=== PATIENT | male | born 1970 | race Hispanic/Latino ===

== ENCOUNTER 2024-05-18 22:46 | Inpatient (IN) | payer OTHER, SELFPAY ==
[2024-05-18] VITALS (7 sets, daily range): BP systolic 110–155; BP diastolic 58–107; BMI 31.6
[2024-05-18 18:22] LABS: % Basophils 0.5 % (0-2); % Eosinophils 0.1 % (0-6); % Immature Granulocytes 4.9 % (0-0.5); % Lymphocytes 12.1 % (20.5-51.1); % Monocytes 13.4 % (1.7-9.3); Absolute Basophils 0.1 10^3/uL (0-0.2); Absolute Immature Granulocytes 0.5 10^3/uL (0-0.05); Absolute Lymphocytes 1.3 10^3/uL (1.2-3.4); Absolute Monocytes 1.5 10^3/uL (0.1-0.6); Absolute Neutrophils 7.6 10^3/uL (1.4-6.5); Hematocrit 37.3 % (39.0-52.0); Hemoglobin 13.7 g/dL (13.0-18.0); Mean Corp Hgb Conc. 36.7 g/dL (33.0-37.0); Mean Corpuscular Hgb 30.9 pg (27.0-31.0); Nucleated Red Blood Cells % 0 % (-); Platelet Count 184 10^3/uL (130-400); Red Blood Cell Count 4.44 10^6/uL (4.70-6.10); Red Cell Dist. Width 12.1 % (11.5-14.5)
[2024-05-18 18:37] LABS: ALT (SGPT) 11 U/L (0-50); AST (SGOT) 23 U/L (17-59); Alkaline Phosphatase 141 U/L (38-126); Blood Urea Nitrogen 10 mg/dl (9-20); Calcium 9.2 mg/dl (8.4-10.2); Carbon Dioxide 18 mmol/L (22-30); Chloride 94 mmol/L (98-107); Glucose 417 mg/dl (70-99); Potassium 4.1 mmol/L (3.5-5.1); Sodium 128 mmol/L (135-145); Total Protein 6.8 g/dl (6.3-8.2); eGFR > 60.00
[2024-05-18] MEDS: TYLENOL 1000 MG PO (20:12)
--- NOTE | 2024-05-18 20:30 | ED.GENMED ---
History of Present Illness
<Bon Love PA-C - Last Filed: 05/18/24 22:32>
General
Chief Complaint: Male Genito-Urinary Symptoms
Source: patient
Time Seen by Provider: 05/18/24 20:04
History of Present Illness
History of Present Illness:
Lao Language Line [id number], griffin, used for interpretation
54-year-old male with past medical history of diabetes (has not been on medication for many years) presenting to the emergency department for evaluation of pain and swelling to his scrotum noting that he had a pimple on this on Saturday and he did to
pop the pimple and drained the area but states it did not drain anything and he has been having worsening pain and swelling since. Patient felt febrile but did not take his temperature, found to be febrile in triage. Did not take any medications
prior to arrival. Notes that he had 1 previous similar instance where he did drain a pustule but states this has gotten significantly worse than what he had previously. Patient notes that he used to take metformin but due to a job change was
unable to afford the medication and has not been on this. Patient denies any dysuria, urinary frequency/urgency, hematuria or any other concerns presently.
Past History
<Bon Love PA-C - Last Filed: 05/18/24 22:32>
Past History
ED Past Medical History: NIDDM
ED Past Surgical History: None
Social History
Tobacco: Non-smoker
Alcohol: None
Drug: None
Personal:
Living: with family
Employment: Other
Family History
Family History: Other
Review of Systems
<Bon Love PA-C - Last Filed: 05/18/24 22:32>
Review of Systems
All Other Systems: ROS reviewed and negative except as documented in HPI and ROS
Phy Exam
<Bon Love PA-C - Last Filed: 05/18/24 22:32>
Physical Exam
Physical Exam:
GENERAL: Alert , appears very uncomfortable
HEAD: NCAT
EYE: clear conjunctiva
NECK: Supple
ENT: o/p clr, mmm.
CARDIAC: Tachycardic rate and rhythm
LUNGS: Clear breath sounds bilaterally, no acute respiratory distress, no wheezes/rales/rhonchi
ABDOMEN: Soft, without focal tenderness, no r/g, no cvat
GENITOURINARY: Patient with significant bilateral scrotal edema but tenderness more so on the right. Edema and tenderness extends down into the perineum but without crepitus. There is some mild erythema overlying the scrotum and perineum. There
is a small area where pustule was which is hypopigmented. Due to the amount of edema to the scrotum difficult to assess testicular edema/focal areas of pain
NEUROLOGICAL: Alert and oriented
SKIN: Warm and dry, skin intact.
MUSCULOSKELETAL: well perfused.
PSYCH: Normal and appropriate interaction.
Scores
<Bon Love PA-C - Last Filed: 05/18/24 22:32>
Heart Failure Risk
Heart Failure Risk Score: Not Applicable
Heart Score for Chest Pain Patients
STEMI patient?: Not applicable
Withdrawal Assessment of Alcohol
Withdrawal Assessment Completed?: Not applicable
Course
<Bon Love PA-C - Last Filed: 05/18/24 22:32>
Orders/Labs/Results
Orders:
Orders
05/18/24 18:01
Scrotum US [US Scrotum] Urgent
Comment:
Reason For Exam: pain, swelling
05/18/24 18:04
Complete Blood Count/With Diff Urgent
Comprehensive Metabolic Panel Urgent
05/18/24 20:05
Acetaminophen [Tylenol] 1,000 mg PO NOW STA
05/18/24 20:13
Lactic Acid Q4H
Comment: CANCEL 2nd LACTIC ACID IF 1st LACTIC ACID IS LESS THAN 2
Blood Culture Routine
ERIC Source: Blood/Venous
Specimen Description:
Blood Culture Urgent
ERIC Source: Blood/Venous
Specimen Description:
05/18/24 20:30
CT Abd/pelvis W Iv Cont Urgent
Comment:
Reason For Exam: significant scrotal/perineal edema/pain, fever
05/18/24 20:31
HYDROmorphone [Dilaudid] 1 mg IV NOW STA
Piperacillin/Tazo 3.375 Gram [Zosyn] 3.375 gram in 50 ml IV NOW
05/18/24 20:38
Vancomycin [Vancocin] 2,000 mg 0.9% Sodium Chloride 500 ml [Nss] 500 ml IV NOW
05/18/24 21:46
0.9% Sodium Chloride 1000 ml [Nss] 2,300 ml IV NOW STA
05/18/24 22:21
Insulin Aspart [NOVOLOG vial] 4 units SC NOW STA
05/18/24 22:23
Lidocaine 2% [Lidocaine Uro-Jet 2%] 1 syringe .ROUTE .STK-MED ONE
05/18/24 22:27
Admit/Transfer Patient As Directed
Co-Sign Provider:
Level of Care: Inpatient admission
Assign to:: ICU
Physician / Group: Chance
Diagnosis: NSTI, Sepsis
Reason for Hospitalization: NSTI, Sepsis
Expected length of stay greater than two midnights?: Yes
ELOS- Estimated Length of Stay in days: 5
I certify the patient meets the requirements for IP care: Yes
Code Status As Directed
Resuscitation Status: Full Code
PRN Pain Medication Management As Directed
May give lesser potent ordered pain med per pt: Yes
preference::
Protocol:: Medication orders for pain may be administered in a
manner that supports deferring to patient preference
when the pt is:
- Requesting an ordered lesser potent pain medication.
Least to most potent pain medications are defined
as: acetaminophen < NSAID < tramadol < opioids
(morphine, oxycodone, hydromorphone).
- Requesting a lesser dose of the same medication IF
ORDERED.
- Requesting a less intrusive route of administration
if both routes are prescribed by the provider (PO <
IV).
05/18/24 22:56
Urinalysis Reflex To Culture Urgent
Date Specimen was Collected: 05/18/24
Time Specimen was Collected: 22:47
Chlamydia/GC by PCR Urgent
ERIC Source: Urine
Specimen Description:
Source:: URINE
Date Specimen was Collected: 05/18/24
Time Specimen was Collected: 22:47
05/19/24 00:15
Lactic Acid Q4H
Comment: CANCEL 2nd LACTIC ACID IF 1st LACTIC ACID IS LESS THAN 2
Abnormal Lab Results
05/18/24 05/18/24
18:04 22:25
WBC 11.0 H 10^3/uL
(4.8-10.8)
RBC 4.44 L 10^6/uL
(4.70-6.10)
Hct 37.3 L %
(39.0-52.0)
Abs Immat Gran (auto) 0.5 H 10^3/uL
(0-0.05)
Absolute Neuts (auto) 7.6 H 10^3/uL
(1.4-6.5)
Absolute Monos (auto) 1.5 H 10^3/uL
(0.1-0.6)
Immature Gran % 4.9 H %
(0-0.5)
Lymphocytes % 12.1 L %
(20.5-51.1)
Monocytes % 13.4 H %
(1.7-9.3)
Sodium 128 L mmol/L
(135-145)
Chloride 94 L mmol/L
(98-107)
Carbon Dioxide 18 L mmol/L
(22-30)
Creatinine 0.4 L mg/dL
(0.7-1.3)
Glucose 417 H mg/dl
(70-99)
Alkaline Phosphatase 141 H U/L
(38-126)
POC Glucose 268 H mg/dl
(70-99)
05/18/24 18:04
05/18/24 18:04
Vital Signs
Initial and Last Documented VS:
Initial Vital Signs
Temp Pulse Resp BP Pulse Ox
101.5 F H 119 20 155/107 98
05/18/24 17:54 05/18/24 17:54 05/18/24 17:54 05/18/24 17:54 05/18/24 17:54
Last Documented Vital Signs
Temp Pulse Resp BP Pulse Ox
100.6 F H 113 16 134/93 95
05/18/24 21:35 05/18/24 20:18 05/18/24 20:18 05/18/24 22:00 05/18/24 22:45
<Jake Jimenez MD - Last Filed: 05/18/24 23:26>
Orders/Labs/Results
Orders:
Orders
05/18/24 18:01
Scrotum US [US Scrotum] Urgent
Comment:
Reason For Exam: pain, swelling
05/18/24 18:04
Complete Blood Count/With Diff Urgent
Comprehensive Metabolic Panel Urgent
05/18/24 20:05
Acetaminophen [Tylenol] 1,000 mg PO NOW STA
05/18/24 20:13
Lactic Acid Q4H
Comment: CANCEL 2nd LACTIC ACID IF 1st LACTIC ACID IS LESS THAN 2
Blood Culture Routine
ERIC Source: Blood/Venous
Specimen Description:
Blood Culture Urgent
ERIC Source: Blood/Venous
Specimen Description:
05/18/24 20:30
CT Abd/pelvis W Iv Cont Urgent
Comment:
Reason For Exam: significant scrotal/perineal edema/pain, fever
05/18/24 20:31
HYDROmorphone [Dilaudid] 1 mg IV NOW STA
Piperacillin/Tazo 3.375 Gram [Zosyn] 3.375 gram in 50 ml IV NOW
05/18/24 20:38
Vancomycin [Vancocin] 2,000 mg 0.9% Sodium Chloride 500 ml [Nss] 500 ml IV NOW
05/18/24 21:46
0.9% Sodium Chloride 1000 ml [Nss] 2,300 ml IV NOW STA
05/18/24 22:21
Insulin Aspart [NOVOLOG vial] 4 units SC NOW STA
05/18/24 22:23
Lidocaine 2% [Lidocaine Uro-Jet 2%] 1 syringe .ROUTE .STK-MED ONE
05/18/24 22:27
Admit/Transfer Patient As Directed
Co-Sign Provider:
Level of Care: Inpatient admission
Assign to:: ICU
Physician / Group: Chance
Diagnosis: NSTI, Sepsis
Reason for Hospitalization: NSTI, Sepsis
Expected length of stay greater than two midnights?: Yes
ELOS- Estimated Length of Stay in days: 5
I certify the patient meets the requirements for IP care: Yes
Code Status As Directed
Resuscitation Status: Full Code
PRN Pain Medication Management As Directed
May give lesser potent ordered pain med per pt: Yes
preference::
Protocol:: Medication orders for pain may be administered in a
manner that supports deferring to patient preference
when the pt is:
- Requesting an ordered lesser potent pain medication.
Least to most potent pain medications are defined
as: acetaminophen < NSAID < tramadol < opioids
(morphine, oxycodone, hydromorphone).
- Requesting a lesser dose of the same medication IF
ORDERED.
- Requesting a less intrusive route of administration
if both routes are prescribed by the provider (PO <
IV).
05/18/24 22:56
Urinalysis Reflex To Culture Urgent
Date Specimen was Collected: 05/18/24
Time Specimen was Collected: 22:47
Chlamydia/GC by PCR Urgent
ERIC Source: Urine
Specimen Description:
Source:: URINE
Date Specimen was Collected: 05/18/24
Time Specimen was Collected: 22:47
05/19/24 00:15
Lactic Acid Q4H
Comment: CANCEL 2nd LACTIC ACID IF 1st LACTIC ACID IS LESS THAN 2
Abnormal Lab Results
05/18/24 05/18/24
18:04 22:25
WBC 11.0 H 10^3/uL
(4.8-10.8)
RBC 4.44 L 10^6/uL
(4.70-6.10)
Hct 37.3 L %
(39.0-52.0)
Abs Immat Gran (auto) 0.5 H 10^3/uL
(0-0.05)
Absolute Neuts (auto) 7.6 H 10^3/uL
(1.4-6.5)
Absolute Monos (auto) 1.5 H 10^3/uL
(0.1-0.6)
Immature Gran % 4.9 H %
(0-0.5)
Lymphocytes % 12.1 L %
(20.5-51.1)
Monocytes % 13.4 H %
(1.7-9.3)
Sodium 128 L mmol/L
(135-145)
Chloride 94 L mmol/L
(98-107)
Carbon Dioxide 18 L mmol/L
(22-30)
Creatinine 0.4 L mg/dL
(0.7-1.3)
Glucose 417 H mg/dl
(70-99)
Alkaline Phosphatase 141 H U/L
(38-126)
POC Glucose 268 H mg/dl
(70-99)
05/18/24 18:04
05/18/24 18:04
Vital Signs
Initial and Last Documented VS:
Initial Vital Signs
Temp Pulse Resp BP Pulse Ox
101.5 F H 119 20 155/107 98
05/18/24 17:54 05/18/24 17:54 05/18/24 17:54 05/18/24 17:54 05/18/24 17:54
Last Documented Vital Signs
Temp Pulse Resp BP Pulse Ox
100.6 F H 113 16 134/93 95
05/18/24 21:35 05/18/24 20:18 05/18/24 20:18 05/18/24 22:00 05/18/24 22:45
<Bon Love PA-C - Last Filed: 05/18/24 22:32>
MDM/Problems Addressed
Differential Diagnosis Includes:
Orchitis, epididymitis, Salima's gangrene, STI, UTI, abscess
MDM/Problems Addressed:
54-year-old male presenting the emergency department for evaluation of significant scrotal pain and edema that started Saturday is a small pustule but is gradually worsened throughout the weekend. Today found to be significantly tachycardic, febrile
and appears quite uncomfortable. Exam was noted for significant scrotal edema with pain and tenderness extending into the perineum. Labs were initiated while in triage which revealed a leukocytosis of 11,000. Patient also has a glucose of 417 and
the bicarb of 18. 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 Vancomycin and Zosyn ordered. Stat CT and scrotal ultrasound ordered. Patient will certainly require admission and
possible consultation with urology as well as general surgery.
Chronic conditions affecting care: DM
Acute Exacerbation and/or Progression of Chronic Illness: DM
<Bon Love PA-C - Last Filed: 05/18/24 22:32>
*Radiology
Radiology exam reviewed: radiology read reviewed
*Pulse Oximetry
Patient hypoxic: no
*Critical Care Note
Total Time (30-74mins, 75-104mins- exclusive of procedures): 30
comment:
Critical care statement: A total of 30 minutes of critical care time was provided for this patient. This includes management of unstable vital signs, evaluation of the patient at bedside, reviewing the patient's pertinent medical records, discussion
with consultants, review of old EKGs and review of pertinent medical records. This time with separate from time utilized to perform the aforementioned documented procedures
<Bon Love PA-C - Last Filed: 05/18/24 22:32>
Patient Management
Discussion with other providers: Hospitalist and Manufacturing Supervisor
Escalation/DeEscalation of care consider admission/obs:
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 Due to these findings I notified urology, general surgery and hospitalist team. Urology will come to the ER to evaluate patient with plan to take to the OR. They are
requesting Matute catheter be placed. Hospitalist team accepts for continued evaluation and treatment. I initially ordered 4 units of insulin subcutaneously for patient's hyperglycemia but upon recheck following fluids patient's blood sugar down to
268. Will hold on the insulin at this time.
ED Attending Note
<Bon Love PA-C - Last Filed: 05/18/24 22:32>
-
Portions of this chart may have been created with voice recognition software.� Occasional wrong word or��sound alike� substitutions may have occurred due to the inherent limitations of voice recognition software.
<Jake Jimenez MD - Last Filed: 05/18/24 23:26>
ED Attending Note
Patient seen and examined by attending physician: Yes
ED Attending Note:
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 Discussed with on-call urology, Dr. Tovar, who will come and evaluate patient. Prostatic antibiotics ordered, along with IV fluids. Patient remains alert, awake, and
oriented, with stable blood pressure, although with mild tachycardia. Patient will be admitted to the hospitalist service.
Pt evaluated by (urology) - will proceed to OR
Discharge Plan
Departure
Patient Disposition: Admit
Date of Disposition: 05/18/24
Time of Disposition: 21:47
Presentation/result/management discussed w/ accepting MD/DO: Hospitalist
Discharge Problem:
Salima gangrene, Diabetes mellitus
Interventions
Interventions:
*Risk Screen - Suicide Last Done: 05/18/24 20:18
*General Assessment Last Done: 05/18/24 20:18
*Neglect/Abuse Screening Last Done: 05/18/24 20:18
ED- Fall Risk Assessment Last Done: 05/18/24 20:18
*ED COVID-19 Vaccine History Last Done: 05/18/24 20:18
ED-Male Genitourinary Assessment Last Done: 05/18/24 21:03
[2024-05-18] MEDS: DILAUDID 1 MG IV (20:36)
[2024-05-18] MEDS: ZOSYN 50 IV (20:36)
[2024-05-18 20:52] LABS: Lactic Acid 1.6 mmol/L (0.7-2.0)
[2024-05-18] MEDS: VANCOCIN 540 MG IV (21:10)
[2024-05-18] MEDS: NSS 2300 ML IV (21:53)
[2024-05-18 22:27] LABS: Glucose - Point of Care 268 mg/dl (70-99)
--- NOTE | 2024-05-18 23:11 | EDRN ---
Dr. Tovar at bedside working on seeing and assessing patient
[2024-05-18 23:22] LABS: Urine Albumin Trace (Neg - Trace); Urine Bilirubin Negative (Negative); Urine Character Clear (Clear); Urine Color Yellow; Urine Glucose 3+ (Negative); Urine Ketone 3+ (Negative); Urine Leukocyte Negative (Negative); Urine Nitrite Negative (Negative); Urine Occult Blood Negative (Negative); Urine Specific Gravity 1.015 (<1.030); Urine Urobilinogen Negative (Neg - 1+)
--- NOTE | 2024-05-18 23:29 | HPS.HSE ---
Family Physician
-
Family Physician: * NONE
Chief Complaint
-
Scrotal Pain and Swelling
History of Present Illness
Patient is a 54y M with PMH significant for DM-II who presents to ED complaining of scrotal pain and swelling. Patient states that he appreciated a 'pimple' on his scrotum on the R side on Saturday of last week. He attempted to express material
from this lesion without success. He then punctured the lesion with a pin in an attempt to drain it - also without success. Over the last 2 days, patient has appreciated significant increased in pain and swelling of the scrotum and penis. He
denies any difficulty with urination or hematuria. He reports fevers / shaking chills over the past 2 days.
Patient has DM-II but is not currently on any medications. He denies any prior history of surgeries.
Medical History
Past Medical History
Past Medical History: Reports Other
Additional Past Medical History:
DM-II
Past Surgical History: Reports None
Social History
Tobacco: Non-smoker
Alcohol: Occasional
Drug: None
Family History
Family History: Not pertinent
Allergies / Home Medications
Allergies reflects when Allergies were last updated in [employer].
Home Medications with original date entered in [employer]
Allergy/Medication List:
Allergies
Allergy/AdvReac Type Severity Reaction Status Date / Time
No Known Allergies Allergy Unverified 05/18/24 17:57
Home Medications
No Meds [No Current Medications] 05/18/24
Review of Systems
-
History Source: Patient
A 12 point ROS was completed and negative except as noted: Yes
Constitutional: Reports Fever and Chills
Respiratory: Denies Cough or Trouble Breathing
Cardiac: Denies Chest Pain or Palpitations
Abdomen/GI: Denies Abdominal Pain, Nausea, Vomiting or Diarrhea
: Reports Other (Scrotal pain and swelling.); Denies Dysuria, Flank Pain or Bleeding
Musculoskeletal: Denies Edema
Neurological: Denies Dizzy or Headache
Psych: Denies Depression or Anxiety
Physical Exam
Vital Signs
Vital Signs
Temp Pulse Resp BP Pulse Ox
100.6 F H 113 16 134/93 95
05/18/24 21:35 05/18/24 20:18 05/18/24 20:18 05/18/24 22:00 05/18/24 22:45
Physical Exam
General: Other (54y M in no acute distress.)
HEENT: Moist mucous membranes and PERRLA
Respiratory: Clear; No Wheezes, Rales or Rhonchi
Cardiac: S1/S2 and Tachycardia; No Murmur
GI: Soft, Non Tender, Non Distended and Normal Bowel Sounds
Genito-urinary: Other (Scrotal edema and tenderness with erythema / increased warmth. Punctate lesion R lateral aspect of the scrotum with clear drainage / discharge. )
Musculoskeletal: No Clubbing, No Cyanosis and No Edema
Neuro: AO x 3
Laboratory Results
-
05/18/24 18:04
05/18/24 18:04
Laboratory Results
Lactic Acid 1.6 mmol/L (0.7-2.0) 05/18/24 20:13
Total Bilirubin 1.0 mg/dl (0.2-1.3) 05/18/24 18:04
AST 23 U/L (17-59) 05/18/24 18:04
ALT 11 U/L (0-50) 05/18/24 18:04
Alkaline Phosphatase 141 U/L (38-126) H 05/18/24 18:04
Impression/Plan
-
A/P: Patient is a 54y M with PMH significant for DM-II who presents to ED complaining of scrotal pain and swelling.
Necrotizing Soft Tissue Infection
Sepsis secondary to the above
- Patient with fever, tachycardia, leukocytosis and evidence of soft tissue infection on exam.
- CT imaging done in the ED shows gas in the soft tissues consistent with necrotizing soft tissue infection / Salima's gangrene.
- Urology evaluated the patient in the ED and he will be taken urgently to the OR for wide debridement.
- Admit to the ICU post-operatively.
- IV abx, aggressive IVFs, supportive care, pain control, etc.
- Follow serial lactate, BP, etc.
- Follow for clinical improvement.
- Follow-up culture data and adjust abx as appropriate.
DM-II with Hyperglycemia
- Glucose initially > 400 but improved significantly with aggressive IVFs support.
- Minimal elevation in anon gap - likely related to infection / NSTI > DKA.
- Continue aggressive IVFs given sepsis, hyperglycemia, etc.
- Update A1C.
- Follow glucose and cover with SSI as needed.
Pseudohyponatremia / Mild Hyponatremia
- Secondary to glucose elevation. Corrected Na = 133.
- IVFs as noted above. Follow for changes.
DVT Prophylaxis: Lovenox
Code Status: Full
--- NOTE | 2024-05-18 23:45 | W.PN.URO.CBU ---
Today's Communication / Plan
-
to op room
Assessment / Plan
-
diabetic with hert hmi scrotl fournoe for excision and debridement
Diagnosis
-
Date of Service: May 18, 2024
-
Patient Diagnosis:diabetic with rt hemiscrotal fourniers gangrene
Post Op Day:
Subjective
-
pain fever chills rapidy developing painful rt swelling
Objective
-
Vital Signs
Temp Pulse Resp BP Pulse Ox
100.6 F H 113 16 134/93 95
05/18/24 21:35 05/18/24 20:18 05/18/24 20:18 05/18/24 22:00 05/18/24 22:45
Laboratory Results
05/18/24 18:04
05/18/24 18:04
Review of Systems
-
: Discharge and Other
Physical Exam
-
General - well developed, well nourished, no acute distress
Chest - clear bilaterally
Abdomen - soft, non-tender, positive bowel sounds, no CVAT, no incisional pain or distention
Genitalia - draining 1 cm t hemiscrotal ea=scar skin necrtic eschar crepitancel
Rectal - normal
Skin - warm & dry with no rash
Neuro - AOx3, no motor deficits
Extremities - no clubbing, no cyanosis, no edema
Incision - clean, dry
Dressing - clean, dry, intact
Care Review
Data Reviewed
Discussed with: Hospitalist and Nursing
CT Scan: Image Pers Reviewed
[2024-05-19] VITALS (24 sets, daily range): BP systolic 77–135; BP diastolic 54–94; BMI 27.8
[2024-05-19 00:07] LABS: Glucose - Point of Care 193 mg/dl (70-99)
--- NOTE | 2024-05-19 00:11 | EDRN ---
Report to the OR and patient taken upstairs.
--- NOTE | 2024-05-19 00:49 | W.SUR.POST ---
Surgical Immediate Post Op
Note
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
Post Op Diagnosis: same
Procedure Performed: wide xcision and debridement forniers
Primary Surgeon: josé manuel
Secondary Surgeons:
Anesthesia: general
Estimated Blood Loss: 5cc
5
Fluids:
Drains/Shunts: quarter inch katey and iodophor packing
Specimens/Cultures:wouns aerobiic and amaerobic
Doppler/Duplex/Angio (Y/N):
Complications:0
Operative Findings: widely necrotib=c feculent smelling abces s and ncrotic skin an sq tissue widely debrided packed derssed
ti do 1 srt yordan bean in op room once stabilzes and blood sugar under control
[2024-05-19 01:16] LABS: Glucose - Point of Care 193 mg/dl (70-99)
[2024-05-19] MEDS: LR 1000 IV ×2 (01:19→06:22)
--- NOTE | 2024-05-19 01:30 | PTCARENOTE ---
Patient received from PAC, AAOX3, offers no complaints. NSR on monitor, afebrile, blood pressure as documented. Palpabble pulses throughout, no edema noted. Lungs with scattered crackles on left, pulse ox 94% on room air. Abdomen round,
hypoctive bowel sounds. puri catheter draining pink tinged urine. Penis with +[address] edema[address] in place on right side of scrotum, gauze, with serosanguineous fluid. #20 g in ARC, #20 g in right forearm with IVF infusing as ordered. Call vargas
within reach
[2024-05-19] MEDS: ZOSYN 50 IV ×4 (02:00→20:49)
[2024-05-19] MEDS: DILAUDID 0.25 MG IV (04:39)
--- NOTE | 2024-05-19 04:52 | PTCARENOTE ---
Patient reassessed, medicated for pain. Dressing changed. Labs drawn.
[2024-05-19 05:09] LABS: Hematocrit 33.7 % (39.0-52.0); Hemoglobin 12.3 g/dL (13.0-18.0); Mean Corp Hgb Conc. 36.5 g/dL (33.0-37.0); Mean Corpuscular Hgb 32.3 pg (27.0-31.0); Mean Corpuscular Volume 88.5 fL (80.0-94.0); Mean Platelet Volume 9.7 fL (7.4-10.4); Platelet Count 145 10^3/uL (130-400); Red Blood Cell Count 3.81 10^6/uL (4.70-6.10); Red Cell Dist. Width 12.1 % (11.5-14.5); White Blood Cell Count 9.8 10^3/uL (4.8-10.8)
[2024-05-19 05:20] LABS: ALT (SGPT) 21 U/L (0-50); AST (SGOT) 81 U/L (17-59); Albumin 2.9 g/dl (3.5-5.0); Alkaline Phosphatase 81 U/L (38-126); Blood Urea Nitrogen 9 mg/dl (9-20); Calcium 7.6 mg/dl (8.4-10.2); Carbon Dioxide 18 mmol/L (22-30); Chloride 102 mmol/L (98-107); Direct Bilirubin 0.4 mg/dl (0.0-0.4); Estimated Creatinine Clearance 120 ml/min; Glucose 232 mg/dl (70-99); Magnesium 2.1 mg/dl (1.6-2.3); Potassium 3.8 mmol/L (3.5-5.1); Sodium 134 mmol/L (135-145); Total Bilirubin 1.3 mg/dl (0.2-1.3); Total Protein 5.5 g/dl (6.3-8.2); eGFR > 60.00
--- NOTE | 2024-05-19 07:41 | PTCARENOTE ---
Received patient from maintenance technician 2nd shift. Patient is AAOx4, primarily romanian speaking, does understand Fijian. Patient is on room air, 95%. he is in a sinus rhythm on monitor, SCDs for DVT prophylaxis. Patient is NPO, Matute for urine. Assessed wound
with maintenance technician 2nd shift nurse. patient has open right side of scrotum, draining moderate to large amount of serosanguineous drainage. Gauze changed as per urology's note/order. All orders reviewed, call vargas within reach.
--- NOTE | 2024-05-19 08:02 | PHA.VAN.IN ---
Assessment
- Assessment
Renal Function: Appears similar to baseline
Maximum Temperature: 102.3F - 05/18/24 20:18
Concomitant Antimicrobials: piperacillin/tazobactam
AUC Dosing Plan
- Dosing Variables
Dosing Weight (kg): 78
Dosing CrCl (ml/min): 120
Vd coefficient (L/kg): 0.7
- Empiric Dosing
Initial / Loading Dose: 2000mg - 05/18 21:10
Maintenance Regimen: Vanc 1250mg Q12H - first dose now then 1800
Estimated AUC (mcg*h/mL): 475
Estimated Peak (mcg*h/mL): 32.1
Estimated Trough (mcg/ml): 10.8
Estimated Half Life (H): 6.7
- Monitoring
No levels ordered at this time: consider levels in next few days
Pharmacokinetics Vancomycin I
- -
Patient Age: 54
Patient Sex: Male
Vancomycin Day #: 1
Indication: Skin And Soft Tissue
Requesting Provider: Dr. Fletcher
Pertinent Antimicrobial Allergies:
NKDA
Height / Weight:
Height 5 ft 6 in
Actual Weight 78.1 kg
Pertinent Past Medical History: DM II
- Vital Signs / Lab Results
Temp Pulse Resp BP Pulse Ox
99.3 F 82 18 98/72 95
05/19/24 01:54 05/19/24 07:45 05/19/24 07:45 05/19/24 07:00 05/19/24 07:52
Lab Results - Hematology
05/18/24 05/19/24
18:04 04:35
WBC 11.0 H 9.8
Lab Results - Chemistry
05/18/24 05/19/24
18:04 04:35
BUN 10 9
Creatinine 0.4 L 0.3 L
Estimated Creat Clear 120
Albumin 4.0 2.9 L
05/18/24 05/19/24 05/19/24
20:13 00:05 00:15
Lactic Acid 1.6 Cancelled Cancelled
05/19/24
06:05
Lactic Acid Cancelled
Lab Results - Urine
05/18/24
22:56
Urine Nitrite (Reflex) Negative
Leukocyte Esterase Rfl Negative
--- NOTE | 2024-05-19 08:04 | CON.INTV ---
Consultation
Consultation Request
Date/Time Consultation Requested: 05/19/2024 015
Date/Time Consultation Performed: 05/19/2024757
Requesting Provider: MELODY Arrington
Performing Provider: Larry Small MD
Reason for Consultation: Post-operartive status/wide excision + scrotal debridement
Medical History
-
Chief Complaint: Right testicular pain + swelling
History of Present Illness:
54[facility] with past medical history of DM type II who p/w right-sided testicular swelling since Saturday (05/15/2024). He initially thought it was a pimple and tried popping it with a needle. It then became very red and painful and
swollen. He denies penile discharge or difficulty with urination. In triage she was febrile to 101.5�F which increased to 102.3 �F about 2-1/2 hours later; initial heart rate 119, breathing at 20 breaths/min, BP 155/107 and saturating 98% on room
air. Initial labs showed leukocytosis to 11, Hb 13.7, sodium 128, serum bicarbonate level 18, glucose 417, lactate 1.6, and urinalysis with +3 ketones. Blood cultures were collected, and scrotal ultrasound showed severe bilateral scrotal edema
with no evidence of testicular torsion or epididymoorchitis. 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 Base of the lung shows mild patchy
groundglass opacities/tree-in-bud nodules suspicious for infectious/inflammatory bronchiolitis. He was given Dilaudid, Zosyn/vancomycin and IVF with 2.3L of NS 0.9%. Urology was consulted and patient brought to the OR for wide excision and
debridement. There was 5 cc of blood loss with quarter inch [place] drain placed and wound was also packed. Cultures were sent, and patient transferred to the ICU postoperatively for further care. Director Of Industrial Relations services consulted for additional
management/recommendations.
When I saw the patient he was resting in bed in no acute distress. He denies pain. He is afebrile to 98.5 �F, pulse rate 81, breathing at 17 breaths/min, BP 104/77, and saturating 95% on room air.
PMHx: DM type II
PSHx:Non-contributory
Past Medical History
Past Medical History: Other (Above as per HPI)
Past Surgical History: Other (Above as per HPI)
Social History
Tobacco: Non-smoker
Alcohol: Occasional
Drug: None
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
Family History
Family History: Reviewed & Not Pertinent
Allergies / Home Medications
Allergies
Allergy/AdvReac Type Severity Reaction Status Date / Time
No Known Allergies Allergy Unverified 05/18/24 17:57
Home Medications
�Medication �Instructions �Recorded �Confirmed �Last Taken �Type
No Meds [No Current Medications] 05/18/24 05/18/24 Unknown History
Review of Systems
-
History Source: Patient
All other systems: Negative unless noted
Vitals / Labs / Diagnostic Testing
Vital Signs
Temp Pulse Resp BP Pulse Ox
98.5 F 82 18 98/72 95
05/19/24 08:10 05/19/24 07:45 05/19/24 07:45 05/19/24 07:00 05/19/24 07:52
Lab Data
05/19/24 04:35
05/19/24 04:35
Diagnostic Testing:
Physical Exam
-
HEENT: Normocephalic, Anicteric and Moist Mucous Membranes
Cardiovascular: S1/S2 and Peripheral Edema (negative)
Respiratory: Wheeze (negative), Rales (negative), Rhonchi (negative) and Non-Labored Respirations
GI: Soft, Non Distended, Non Tender and Normal Bowel Sounds
Neurology: Awake and Alert
Skin: Warm, Dry and Other (Bandage along right side of scrotum/ischio-pubic ramus)
General: Respiratory Distress (negative), Comfortable, Chills (negative) and Sweats (negative)
Assessment
-
Assessment: 54[facility] with past medical history of DM type II who p/w right-sided testicular swelling since Saturday (05/15/2024). He initially thought it was a pimple and tried popping it with a needle. It then became very red and
painful and swollen. He denies penile discharge or difficulty with urination. In triage she was febrile to 101.5�F which increased to 102.3 �F about 2-1/2 hours later; initial heart rate 119, breathing at 20 breaths/min, BP 155/107 and saturating
98% on room air. Initial labs showed leukocytosis to 11, Hb 13.7, sodium 128, serum bicarbonate level 18, glucose 417, lactate 1.6, and urinalysis with +3 ketones. Blood cultures were collected, and scrotal ultrasound showed severe bilateral
scrotal edema with no evidence of testicular torsion or epididymoorchitis. 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 Base of the lung shows
mild patchy groundglass opacities/tree-in-bud nodules suspicious for infectious/inflammatory bronchiolitis. He was given Dilaudid, Zosyn/vancomycin and IVF with 2.3L of NS 0.9%. Urology was consulted and patient brought to the OR on 05/19/2024 for
wide excision and debridement. There was 5 cc of blood loss with quarter inch [place] drain placed and wound was packed. Cultures were sent, and patient transferred to the ICU postoperatively for further care. Director Of Industrial Relations services consulted for
additional management/recommendations.
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
Impression:
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
#Bilateral lower lobe CAP
#Sepsis without shock due to above
#DM type II (uncontrolled with HbA1C: 11.6 - 05/19/2024) complicated by hyperglycemia
#Hyponatremia likely due to reduced PO intake/starvation
Plan:
- Postoperative management as per urology
- Continue with ABx - currently on Zosyn + IV vanco
- Follow up blood Cx and OR cultures; check sputum Cx if patient can provide a decent sample
- Would plan to continue antibiotics until no further debridement is necessary, and it would be reasonable to give him at least 2 weeks total of treatment
- Recommend ID consult to assist with ABx duration
- Wound care consult
- Recommend repeating CT Chest in 4-6 weeks to follow up pneumonia to resolution
- Maintain MAP>65
- Maintain euglycemia with goal BG 140-180
- Diabetic CLINICAL LAB SCIENTIST consulted --> likely will need basal-bolus insulin dosing
- A1C: 11.6
- Check lipid profile as well
- Maintain SpO2 >90-94% with O2 if needed
- Replete electrolytes with K>4, Mg>2
- Trend serum Na with goal 135-145
- Transfuse blood products as needed to keep Hb>7, plt>50k (given post-operative status)
- prn nebulized bronchodilators - not currently bronchospastic
- Incentive spirometer encouraged - 10x/hr for at least 4 hrs a day
- DVT ppx: LMWH
Patient is doing remarkably well, pain is controlled and he is hemodynamically stable, afebrile and saturating 96-97% on room air. Stable for downgrade out of ICU to telemetry. Director Of Industrial Relations/Pulmonary service will now sign off. Thank you for
allowing us to be involved in the care of this patient. Please reconsult if there are any additional questions/concerns, or if patient's respiratory status deteriorates.
Data:
CT abdomen/pelvis with IV contrast 05/18/2024:
1. Bilateral hydroceles and right-sided perineal/scrotal soft tissue gas consistent with Salima's gangrene in the appropriate clinical context.
2. Low-grade infectious/inflammatory bronchiolitis in the bilateral lower lung zones.
3. Right hepatic lobe probable hemangioma. Recommend outpatient confirmation with dedicated MRI abdomen without and with gadolinium contrast.
4. Moderate diffuse colonic stool burden may reflect constipation.
[2024-05-19] MEDS: PROTONIX IV 40 MG IV (08:24)
[2024-05-19] MEDS: NSS (PRESERVATIVE FREE) 10 ML IV (08:24)
[2024-05-19 08:27] LABS: Glucose - Point of Care 189 mg/dl (70-99)
--- NOTE | 2024-05-19 08:50 | W.PN.HOSP.TC ---
Today's Communication/Plan
-
IV antibiotics.
Assessment / Plan
Assessment / Plan
Physical exam:
General: Well Developed, Well Nourished and No Apparent Distress
HEENT: Normocephalic, Atraumatic and Moist Mucous Membranes
Respiratory: Clear to Auscultation; Negative Wheezes, Rales or Rhonchi
Cardiac: Regular Rhythm and S1/S2
GI: Soft, Nontender and Nondistended
Musculoskeletal: No Clubbing, No Cyanosis and No Edema
Genito-urinary: Other (Scrotal edema and tenderness with erythema / increased warmth. Punctate lesion R lateral aspect of the scrotum with clear drainage / discharge. )
Neuro: Awake, Alert and Oriented
Psych: Calm
A/P:
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
Sepsis secondary to the above
-Status post I&D in the OR by urology emergently.
- Patient with fever, tachycardia, leukocytosis and evidence of soft tissue infection on exam.
- CT imaging done in the ED shows gas in the soft tissues consistent with necrotizing soft tissue infection / Salima's gangrene.
- Urology evaluated the patient in the ED and he will be taken urgently to the OR for wide debridement.
- Admit to the ICU post-operatively.
- IV abx, aggressive IVFs, supportive care, pain control, etc.
- Follow serial lactate, BP, etc.
- Follow for clinical improvement.
- Follow-up culture data and adjust abx as appropriate.
DM-II with Hyperglycemia
- Glucose initially > 400 but improved significantly with aggressive IVFs support.
- Minimal elevation in anon gap - likely related to infection / NSTI > DKA.
- Continue aggressive IVFs given sepsis, hyperglycemia, etc.
- Update A1C.
- Follow glucose and cover with SSI as needed.
Pseudohyponatremia / Mild Hyponatremia
- Secondary to glucose elevation. Corrected Na = 133.
- IVFs as noted above. Follow for changes.
DVT Prophylaxis: Lovenox
Code Status: Full
Time spent 51 minutes
Anticipated Discharge: > 48 hours
Subjective/Interval History
-
Date of Service: May 19, 2024
Discomfort in scrotal area. Afebrile
Objective Data
-
Labs:
Laboratory Results
05/19/24
04:35
WBC 9.8
Hgb 12.3 L
Hct 33.7 L
Plt Count 145 D
Sodium 134 L
Potassium 3.8
Chloride 102
Carbon Dioxide 18 L
BUN 9
Creatinine 0.3 L
Glucose 232 H
Calcium 7.6 L D
Total Bilirubin 1.3
AST 81 H
ALT 21
Alkaline Phosphatase 81
Vital Signs:
Vital Signs
Temp Pulse Resp BP Pulse Ox
98.5 F 82 18 98/72 95
05/19/24 08:10 05/19/24 07:45 05/19/24 07:45 05/19/24 07:00 05/19/24 07:52
I&O
05/18/24 05/19/24 05/20/24
06:59 06:59 06:59
Intake Total 1350 / 1550 200 / 200
Output Total 1575 / 1575
Balance -225 / -25 200 / 200
[2024-05-19] MEDS: VANCOCIN 275 MG IV ×2 (08:59→18:41)
[2024-05-19] MEDS: NOVOLOG FLEXPEN-MODERATE RESISTANCE 1 UNITS SC (09:00)
[2024-05-19 09:14] LABS: Glycohemoglobin (HgbA1c) 11.6 % (4.0-5.6)
--- NOTE | 2024-05-19 09:40 | W.PN.URO.CBU ---
Today's Communication / Plan
-
wound check am wed please have saline and 4x4 and kerlix sponges in room am wed
Assessment / Plan
-
diabetic s/p debridemtn of fourniers gangrene sig improvement will engage wound care nursing and start dressing rama[yrn wed may need op room debridement but pt sig improved and non toxic will see what devitalized tissue remains aftrt
wound mohsen=ges this week
Diagnosis
-
Date of Service: May 19, 2024
-
Patient Diagnosis:
Post Op Day:
Patient Diagnosis:diabetic with rt hemiscrotal fourniers gangrene
Post Op Day:
Subjective
-
much improved no fevr
Objective
-
Vital Signs
Temp Pulse Resp BP Pulse Ox
98.5 F 82 18 98/72 95
05/19/24 08:10 05/19/24 07:45 05/19/24 07:45 05/19/24 07:00 05/19/24 07:52
Intake and Output
05/18/24 05/19/24 05/20/24
06:59 06:59 06:59
Intake Total 1350 / 1550 200 / 200
Output Total 1575 / 1575
Balance -225 / -25 200 / 200
Intake:
IV fluids (Total) 1300 / 1500 200 / 200
Lr 1,000 ml @ 200 mls/hr IV . 1000 / 1200 200 / 200
Q5H [facility] Rx#:[id number]
Normosol 300 / 300
IV piggybacks 50 / 50
Output:
Urine, [place] 1575 / 1575
Laboratory Results
05/19/24 04:35
05/19/24 04:35
Review of Systems
-
: Other (pain in scrotum)
Physical Exam
-
General - well developed, well nourished, no acute distress
Chest - clear bilaterally
Abdomen - soft, non-tender, positive bowel sounds, no CVAT, no incisional pain or distention
Genitalia - penis less swollen wound with min drainage
Rectal - normal
Skin - warm & dry with no rash
Neuro - AOx3, no motor deficits
Extremities - no clubbing, no cyanosis, no edema
Incision - clean, dry
Dressing - clean, dry, intact
Care Review
Data Reviewed
Discussed with: Hospitalist and Nursing
[2024-05-19] MEDS: LR IV (11:48)
[2024-05-19 12:02] LABS: Glucose - Point of Care 203 mg/dl (70-99)
--- NOTE | 2024-05-19 12:07 | PTCARENOTE ---
No change in patient's assessment. Reenforced Patient's draining dressing. Patient tolerated breakfast, met with certified lactation educator. May potentially downgrade out of ICU.
[2024-05-19] MEDS: NOVOLOG FLEXPEN-MODERATE RESISTANCE 3 UNITS SC ×2 (13:24→18:07)
--- NOTE | 2024-05-19 13:24 | CM ---
CM following re: discharge planning.
Reviewed pt's,chart, met with pt and pt's son at bedside.
Pt is a 54 year old male, admitted with primary dx of Necrotizing Soft Tissue Infection, S/P debridement of Salima gangrene.
Pt reports he is undocumented immigrant from [facility], has been living in the [facility] for the past 24 years, primary language [place] and pt has basic understanding of [place]. Pt reports he lives with spouse and 2 children in a 2SH, 1 step to enter, has
3 supportive children. 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
Pt reports he does not have PCP and does not have preferred pharmacy. An application to apply for services at [facility] provided in [place] and CM advised the pt and his son to complete [facility] and to bring to [facility].
D/C plan; home with [facility] to follow up and family support.
CM will follow with discharge plan updates as hospitalization progresses
[2024-05-19 13:38] LABS: Glucose - Point of Care 203 mg/dl (70-99)
--- NOTE | 2024-05-19 14:09 | PN.DE.MGMTRT ---
Insulin Management
- -
05/19/2024 Diabetes Management Consult
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 H diabetes for ~ 5 years per patient, taking no medication. On admission A1C 11.6%, cr .3, eGFR >60.
Patient is awake alert and oriented able to communicate in limited [place]. He states he does not have insurance, or money. States he was taking metformin in the past but could not afford it. CM has provided information for [facility] .
POD 1 s/p debridement of Fourniers gangrene. Glucose range 189 to 213. Receiving corrective insulin only. Will start metformin 1000 mg BID and glyburide 5 mg BID first dose of each with dinner.
I did place call to patients son and left a voice mail requesting he purchase home glucose monitor at [facility] and bring to hospital so patient can be instructed on steps for testing. (most cost effective for ongoing test strips)
Will follow.
Diabetes History
- -
Type of Diabetes: 2
Pre-Admission Diabetes Regimen
05/18/24 05/19/24
18:04 04:35
Creatinine 0.4 L 0.3 L
Lab Results
Hemoglobin A1c 11.6 % (4.0-5.6) H 05/19/24 04:35
Insulin Pump Settings
IP Diabetes Regimen
05/18/24 05/18/24 05/19/24
18:04 22:25 00:05
Glucose 417 H
POC Glucose 268 H 193 H
05/19/24 05/19/24 05/19/24
01:14 04:35 08:15
Glucose 232 H
POC Glucose 193 H 189 H
05/19/24 05/19/24
11:51 13:23
Glucose
POC Glucose 203 H 203 H
Meal type: Breakfast
Patient Education
[2024-05-19] MEDS: MICRONASE 5 MG PO (17:19)
[2024-05-19] MEDS: GLUCOPHAGE 1000 MG PO (17:19)
[2024-05-19] MEDS: TYLENOL 650 MG PO (17:19)
[2024-05-19] MEDS: LOVENOX 40 MG SC (17:19)
[2024-05-19] MEDS: CALCIUM GLUCONATE 100 IV (17:20)
[2024-05-19 17:45] LABS: Glucose - Point of Care 245 mg/dl (70-99)
--- NOTE | 2024-05-19 18:15 | PTCARENOTE ---
Patient downgraded to tele. Attempted to call report to [phone]. patient room in progress
[2024-05-19 21:20] LABS: Glucose - Point of Care 165 mg/dl (70-99)
[2024-05-20] VITALS (8 sets, daily range): BP systolic 104–125; BP diastolic 53–86; PULSE 71; O2SAT 97; BMI 26.7
[2024-05-20] MEDS: ZOSYN 50 IV ×4 (02:34→20:33)
[2024-05-20] MEDS: VANCOCIN 275 MG IV (05:47)
[2024-05-20] MEDS: TYLENOL 650 MG PO (05:59)
[2024-05-20 06:36] LABS: Hematocrit 36.3 % (39.0-52.0); Mean Corp Hgb Conc. 35.8 g/dL (33.0-37.0); Mean Corpuscular Hgb 31.6 pg (27.0-31.0); Mean Corpuscular Volume 88.3 fL (80.0-94.0); Mean Platelet Volume 9.7 fL (7.4-10.4); Platelet Count 185 10^3/uL (130-400); Red Blood Cell Count 4.11 10^6/uL (4.70-6.10); Red Cell Dist. Width 11.9 % (11.5-14.5); White Blood Cell Count 8.8 10^3/uL (4.8-10.8)
[2024-05-20 07:17] LABS: Blood Urea Nitrogen 8 mg/dl (9-20); Calcium 8.6 mg/dl (8.4-10.2); Carbon Dioxide 25 mmol/L (22-30); Chloride 101 mmol/L (98-107); Estimated Creatinine Clearance 124 ml/min; Glucose 174 mg/dl (70-99); Magnesium 1.9 mg/dl (1.6-2.3); Phosphorus 3.1 mg/dl (2.5-4.5); Potassium 3.7 mmol/L (3.5-5.1); Sodium 137 mmol/L (135-145); Total Cholesterol 144 mg/dl (50-199); Triglyceride 82 mg/dl (10-149); Very Low Density Lipoprotein 16 mg/dl (0-30); eGFR > 60.00
[2024-05-20 07:27] LABS: HDL Cholesterol 53 mg/dl; LDL Cholesterol, Calculated 75 mg/dl
[2024-05-20 07:36] LABS: % Basophils 0.5 % (0-2); % Eosinophils 0.6 % (0-6); % Immature Granulocytes 0.5 % (0-0.5); % Lymphocytes 17.6 % (20.5-51.1); % Monocytes 9.8 % (1.7-9.3); Absolute Eosinophils 0.1 10^3/uL (0-0.7); Absolute Lymphocytes 1.6 10^3/uL (1.2-3.4); Absolute Monocytes 0.9 10^3/uL (0.1-0.6); Absolute Neutrophils 6.3 10^3/uL (1.4-6.5); Nucleated Red Blood Cells % 0 % (-)
[2024-05-20 07:47] LABS: Glucose - Point of Care 180 mg/dl (70-99)
--- NOTE | 2024-05-20 08:19 | PN.DE.MGMTRT ---
Insulin Management
- -
05/20/2024 Diabetes Management Consult Follow up
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 H diabetes for ~ 5 years per patient, taking no medication. On admission A1C 11.6%, cr .3, eGFR >60.
Patient is awake alert and oriented able to communicate in limited Thai. He states he does not have insurance, or money. States he was taking metformin in the past but could not afford it. CM has provided information for [facility] at .
POD 2 s/p debridement of Fourniers gangrene.
Started metformin 1000 mg BID and glyburide 5 mg BID first dose of each with dinner 05/19. Glucose improved to 165 @ HS. Fasting glucose 05/20 174. Will continue corrective insulin as needed. Pre lunch glucose 261, will stop glyburide and start
70/30 novolog 12 units BID first dose with dinner.
05/[address] call to patients son and left a voice mail requesting he purchase home glucose monitor at [facility] and bring to hospital so patient can be instructed on steps for testing. (most cost effective for ongoing test strips) No response.
I called again 05/20
Will follow.
Diabetes History
- -
Type of Diabetes: 2
Pre-Admission Diabetes Regimen
05/20/24
05:45
Creatinine 0.4 L
Lab Results
Hemoglobin A1c 11.6 % (4.0-5.6) H 05/19/24 04:35
Insulin Pump Settings
IP Diabetes Regimen
05/19/24 05/19/24 05/19/24
08:15 11:51 13:23
Glucose
POC Glucose 189 H 203 H 203 H
05/19/24 05/19/24 05/20/24
17:34 21:16 05:45
Glucose 174 H
POC Glucose 245 H 165 H
05/20/24
07:46
Glucose
POC Glucose 180 H
Meal type: Lunch
Amount consumed: 75%
Patient Education
[2024-05-20] MEDS: DILAUDID 0.5 MG IV (08:30)
--- NOTE | 2024-05-20 08:54 | WOUNDNOTE ---
SCROTUM (R SIDE) (UNDERMINES ABOUT 4.5CM PROXIMALLY)
--- NOTE | 2024-05-20 08:57 | W.PN.HOSP.TC ---
Today's Communication/Plan
-
IV antibiotics.
Assessment / Plan
Assessment / Plan
Physical exam:
General: Acutely ill but nontoxic
HEENT: Normocephalic, Atraumatic and Moist Mucous Membranes
Respiratory: Clear to Auscultation; Negative Wheezes, Rales or Rhonchi
Cardiac: Regular Rhythm and S1/S2
GI: Soft, Nontender and Nondistended
Musculoskeletal: No Clubbing, No Cyanosis and No Edema
Genito-urinary: Other (Scrotal postop findings)
Neuro: Awake, Alert and Oriented
Psych: Calm
A/P:
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
Sepsis secondary to the above
-Status post I&D in the OR by urology emergently.
- Patient with fever, tachycardia, leukocytosis and evidence of soft tissue infection on exam.
- CT imaging done in the ED shows gas in the soft tissues consistent with necrotizing soft tissue infection / Salima's gangrene.
- Urology evaluated the patient in the ED and he will be taken urgently to the OR for wide debridement.
- Admit to the ICU post-operatively mL back on the floor.
- IV abx, aggressive IVFs, supportive care, pain control, etc. off IV fluids.
- ID consult
- N.p.o. on Saturday
DM-II with Hyperglycemia
- Glucose initially > 400 but improved significantly with aggressive IVFs support. Today in the morning blood sugar 180
-Start insulin 70/30 12 units twice a day and continue metformin.
- Update A1C--> 11.6
- Follow glucose and cover with SSI as needed.
Pseudohyponatremia / Mild Hyponatremia
- Sodium improved to normal
DVT Prophylaxis: Lovenox
Code Status: Full
Anticipated Discharge: > 48 hours
Subjective/Interval History
-
Date of Service: May 20, 2024
Pain overall is better. Afebrile
Objective Data
-
Labs:
Laboratory Results
05/20/24
05:45
WBC 8.8
Hgb 13.0
Hct 36.3 L
Plt Count 185 D
Sodium 137
Potassium 3.7
Chloride 101
Carbon Dioxide 25
BUN 8 L
Creatinine 0.4 L
Glucose 174 H
Calcium 8.6
Vital Signs:
Vital Signs
Temp Pulse Resp BP Pulse Ox
97.8 F 78 17 109/74 98
05/20/24 07:28 05/20/24 07:28 05/20/24 07:28 05/20/24 07:28 05/20/24 07:28
I&O
05/19/24 05/20/24 05/21/24
06:59 06:59 06:59
Intake Total 1350 / 1550 2910 / 2910
Output Total 1575 / 1575 5050 / 5050
Balance -225 / -25 -2140 / -2140
--- NOTE | 2024-05-20 09:00 | W.PN.URO.CBU ---
Today's Communication / Plan
-
parul puri have soc svcs see pt needs metformin and dressings for eventual discharge
Assessment / Plan
-
diabetic s/p debridemtn of fourniers gangrene sig improved did dressing change and taled with family schedule debridement on saturday for some remainng devitaized tissue will remove
Diagnosis
-
Date of Service: May 20, 2024
-
Patient Diagnosis:
Post Op Day:
Patient Diagnosis:
Post Op Day:
Patient Diagnosis:diabetic with rt hemiscrotal fourniers gangrene
Post Op Day:
Subjective
-
much improved
Objective
-
Vital Signs
Temp Pulse Resp BP Pulse Ox
97.8 F 78 17 109/74 98
05/20/24 07:28 05/20/24 07:28 05/20/24 07:28 05/20/24 07:28 05/20/24 07:28
Intake and Output
05/19/24 05/20/24 05/21/24
06:59 06:59 06:59
Intake Total 1350 / 1550 2910 / 2910
Output Total 1575 / 1575 5050 / 5050
Balance -225 / -25 -2140 / -2140
Intake:
Oral fluids 1410 / 1410
IV fluids (Total) 1300 / 1500 800 / 800
Lr 1,000 ml @ 200 mls/hr IV . 1000 / 1200 800 / 800
Q5H [facility] Rx#:[id number]
Normosol 300 / 300 0 / 0
IV piggybacks 50 / 50 700 / 700
Output:
Urine, Puri 1575 / 1575 5050 / 5050
Laboratory Results
05/20/24 05:45
05/20/24 05:45
Review of Systems
-
: No Symptoms
Physical Exam
-
General - well developed, well nourished, no acute distress
Chest - clear bilaterally
Abdomen - soft, non-tender, positive bowel sounds, no CVAT, no incisional pain or distention
Genitalia - healing with secondary closure will need some debridement
Rectal - normal
Skin - warm & dry with no rash
Neuro - AOx3, no motor deficits
Extremities - no clubbing, no cyanosis, no edema
Incision - clean, dry
Dressing - clean, dry, intact
Care Review
Data Reviewed
Discussed with: Hospitalist, Nursing, Family and Other (wound care)
[2024-05-20] MEDS: GLUCOPHAGE 1000 MG PO ×2 (09:10→18:06)
[2024-05-20] MEDS: NOVOLOG FLEXPEN-MODERATE RESISTANCE 1 UNITS SC ×2 (09:11→18:06)
--- NOTE | 2024-05-20 09:28 | WOUNDNOTE ---
[facility] RN note: Patient admitted with Salima's gangrene R scrotum. s/p OR I+D debridement 05/19/24. Patient does not speak Kiswahili. He does not have medical insurance.
See H&P for complete history.
PMH: NIDDM.
Wound Location and type/assessment: Patient has full thickness scrotal wound s/p OR debridement, wound to muscle, 70%pink that can be visualized and 20% black necrotic tissue. Wound tunnels about 4.5cm proximally. Tubular drain present with suture.
Moderate cloudy laurent drainage. Penis/scrotum swollen. Patient seen with Dr. Tovar who reports edema is improved.
Appetite: good.
Pressure redistribution devices in place: Mobly Accumax. Patient is mobile.
Plan: Changed R scrotal wound dressing/packing with Dr. Tovar. Dr. Tovar requested nursing to perform daily packing, change outer dressing bid and prn drainage. Dr. Tovar planning more OR debridement Saturday or Sat.
Discussed with JOSELYN Martínez who premedicated patient for pain. Air chair cushion given.
Care plan to be updated and will follow as needed.
Note to case management of equipment requested for discharge: surgeon asking if help can be given for home wound supplies. Added follow up with [facility] or [facility] in discharge instructions.
[2024-05-20] MEDS: MICRONASE 5 MG PO (09:35)
--- NOTE | 2024-05-20 09:48 | PTOTSP ---
pt currently demonstrates ability to complete simple ADLs, functional transfers, ambulation with no assistance. no acute OT needs identified, will sign off.
--- NOTE | 2024-05-20 09:49 | PTOTSP ---
PATIENT ABLE TO MOBILIZE INDEPENDENTLY ON LEVEL SURFACES WELL ELEVATIONS REQUIRING NO FURTHER ACUTE CARE SKILLED P.T. AT THIS TIME. RECOMMENDED TO PATIENT TO AMBULATE IN [facility] NEAR HIS ROOM. PATIENT AGREEABLE AND RN AWARE. WILL DISCHARGE FROM
P.T. SERVICES.
[2024-05-20 11:32] LABS: Glucose - Point of Care 261 mg/dl (70-99)
[2024-05-20] MEDS: NOVOLOG FLEXPEN-MODERATE RESISTANCE 5 UNITS SC (13:17)
--- NOTE | 2024-05-20 13:43 | CON.ID ---
Addendum entered and electronically signed by Lashawn Deluna MD 05/20/24 18:18:
I personally performed a history and physical exam of the patient and discussed management with the resident. I reviewed the resident's note and agree with the documented findings and plan of care HPI/CC.
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 DC Vanco. Continue Zosyn pending culture data. Per surgery for further I+D later this week. Follow
temps/wbc.
Original Note:
Consultation
-
Date/Time Consultation Requested: 05-20-24
Date/Time Consultation Performed: 05-20-24
Requesting Provider: Dr. Galvan
Performing Provider: Dr. Deluna
Reason for Consultation: Salima gangrene
Chief Complaint / Past History
Chief Complaint
scrotal swelling and wound
History of Present Illness
Norberto Feliciano, age 54, with diabetes not on any medications came to the emergency with scrotal swelling and pain for 3 days on 05-18-24. He noted a pimple on his scrotum on 05-15-24, which he popped with a needle. The swelling and redness came
on after that and continued to progress. In the ED, he was found to be febrile with T-max of 102.3 F and tachycardic. Blood work was notable for leukocytosis and glucose of 417. Imaging showed scrotal edema, and right-sided perineal/scrotal soft
tissue gas consistent with Salima gangrene. He was started on IV hydration, vancomycin and piperacillin-tazobactam. He underwent wide excision and debridement with urology on 05-19-24 and abscess cultures were sent. He was admitted to the ICU and
then down-graded to the floors. Diabetic management was consulted and he was started on metformin, insulin and glyburide (the latter has been since discontinued). Abscess culture came back positive for Streptococcus agalactiae, and gram stain noted
many gram positive cocci and gram negative rods. Anaerobic abscess cultures pending. Negative for CT/GC. Blood cultures *2 with no growth so far. MRSA screen negative. Of note, he has been off metformin for a long time since he does not have an
insurance or money to afford it.
Past History
Past Medical History: Other (type II diabetes mellitus)
Past Surgical History: None
Allergy History:
No Known Allergies Allergy (Unverified 05/18/24 17:57)
Social History
Tobacco: Non-Smoker
Alcohol: Occasional
Drug: None
Family History
Family History: Not Pertinent
Review of Systems
Review of Systems
General: Negative Fever or Chills
HEENT: Negative Stiff Neck
Cardiovascular: Negative Chest Pain or Palpitations
Respiratory: Negative Dyspnea or Cough
Genital / Urological: Negative Dysuria
Endocrine: Negative Weakness or Fatigue
Musculoskeletal: Negative Joint Pain or Joint Swelling
Neurological: Negative Headache, Dizziness or Fainting
Vital Signs
Temp Pulse Resp BP Pulse Ox
97.8 F 85 17 107/76 96
05/20/24 10:55 05/20/24 10:55 05/20/24 10:55 05/20/24 10:55 05/20/24 10:55
Physical Exam
Physical Exam
Constitutional: No Acute Distress and Comfortable
Head: Normocephalic
Eyes: Pupils Equal and Sclera Anicteric
Pharynx: Benign
Oral: No Ulcers
Cardiovascular: Regular Rate and S1/S2
Pulmonary: Clear and Non Labored
Gastrointestinal: Soft, Non Tender and Non Distended
Genito-Urinary: Other (bilateral scrotal swelling, erythema and tenderness with wound as described below)
Extremities: Negative Edema, Clubbing or Cyanosis
Wound: Other (full thickness scrotal wound with black necrotic tissue; positive tunneling; drain present)
Neurological: Awake, Alert, Oriented and No Motor Deficits
Psychological: Calm
Lab / Diagnostic Study Results
05/20/24 05:45
05/20/24 05:45
Abs Immat Gran (auto) 0.0 10^3/uL (0-0.05) 05/20/24 05:45
Absolute Neuts (auto) 6.3 10^3/uL (1.4-6.5) 05/20/24 05:45
Absolute Lymphs (auto) 1.6 10^3/uL (1.2-3.4) 05/20/24 05:45
Absolute Monos (auto) 0.9 10^3/uL (0.1-0.6) H 05/20/24 05:45
Absolute Basos (auto) 0.0 10^3/uL (0-0.2) 05/20/24 05:45
Immature Gran % 0.5 % (0-0.5) 05/20/24 05:45
Neutrophils % 71.0 % (42.2-75.2) 05/20/24 05:45
Lymphocytes % 17.6 % (20.5-51.1) L 05/20/24 05:45
Monocytes % 9.8 % (1.7-9.3) H 05/20/24 05:45
Eosinophils % 0.6 % (0-6) 05/20/24 05:45
Basophils % 0.5 % (0-2) 05/20/24 05:45
Lactic Acid Cancelled 05/19/24 06:05
Microbiology Results
Micro:
05/19/24 00:55 Anaerobic Culture - Preliminary
Scrotum Culture pending. Anaerobic cultures are examined after 3
days incubation. Additional information to follow.
05/19/24 00:55 Wound Culture - Preliminary
Scrotum Streptococcus agalactiae
Gram Stain - Preliminary
05/19/24 04:35 MRSA Screen - Final
Nose No Methicillin Resistant Staphylococcus aureus isolated.
05/18/24 20:13 Blood Culture - Preliminary
Blood/Venous No Growth in 24 hours- Final report to follow
05/18/24 20:13 Blood Culture - Preliminary
Blood/Venous No Growth in 24 hours- Final report to follow
05/18/24 22:56 Chlamydia trachomatis (PCR) - Final
Urine Neisseria gonorrhoeae (PCR) - Final
Assessment / Plan
Salima gangrene
- Likely a consequence of untreated diabetes and secondary to intentional trauma.
- Status-post debridement on 05-19-24.
- Leukocytosis now resolved, now afebrile with vitals within normal limits.
- Abscess culture with Streptococcus agalactiae, and gram stain noted many gram positive cocci and gram negative rods.
- Anaerobic abscess cultures pending.
- Negative for CT/GC.
- Blood cultures *2 with no growth so far.
- MRSA screen negative.
- Can discontinue vancomycin; will keep piperacillin-tazobactam, pending abscess culture report.
- Can narrow to ampicillin-sulbactam tomorrow if abscess culture report remains unchanged.
- Second debridement scheduled for 05-22-24, per urology.
- Wound care and diabetes management following.
Conditions known prior to admission
Type II diabetes mellitus, not on any treatment
Financial insecurity
--- NOTE | 2024-05-20 14:43 | PHA.VAN.FU ---
Vancomycin Assessment / Plan
- Assessment
Renal Function: Stable
WBC's are: WNL
Concomitant Antimicrobials: piperacillin/tazobactam
- Dosing Plan
Continue: Vanc 1250mg Q12H
- Monitoring Plan
No level(s) ordered at this time: consider levels in next few days
- Follow Up
Pharmacy will continue to follow.
Vancomycin Follow UP
- -
Patient Age: 54
Patient Sex: Male
Vancomycin Day #: 2
Indication: Skin And Soft Tissue
Requesting Provider: Dr. Fletcher
Pertinent Antimicrobial Allergies:
NKDA
Height / Weight:
Height 5 ft 6 in
Actual Weight 75.013 kg
Pertinent Past Medical History: DM II
- Vital Signs / Lab Results
Temp Pulse Resp BP Pulse Ox
97.8 F 85 17 107/76 96
05/20/24 10:55 05/20/24 10:55 05/20/24 10:55 05/20/24 10:55 05/20/24 10:55
Lab Results - Hematology
05/18/24 05/19/24 05/20/24
18:04 04:35 05:45
WBC 11.0 H 9.8 8.8
Lab Results - Chemistry
05/18/24 05/19/24 05/20/24
18:04 04:35 05:45
BUN 10 9 8 L
Creatinine 0.4 L 0.3 L 0.4 L
Estimated Creat Clear 120 124
Albumin 4.0 2.9 L
05/18/24 05/19/24 05/19/24
20:13 00:05 00:15
Lactic Acid 1.6 Cancelled Cancelled
05/19/24
06:05
Lactic Acid Cancelled
Microbiology Results
05/19/24 00:55 Anaerobic Culture - Preliminary
Scrotum Culture pending. Anaerobic cultures are examined after 3
days incubation. Additional information to follow.
05/19/24 00:55 Wound Culture - Preliminary
Scrotum Streptococcus agalactiae
Gram Stain - Preliminary
05/19/24 04:35 MRSA Screen - Final
Nose No Methicillin Resistant Staphylococcus aureus isolated.
05/18/24 20:13 Blood Culture - Preliminary
Blood/Venous No Growth in 24 hours- Final report to follow
05/18/24 20:13 Blood Culture - Preliminary
Blood/Venous No Growth in 24 hours- Final report to follow
05/18/24 22:56 Chlamydia trachomatis (PCR) - Final
Urine Neisseria gonorrhoeae (PCR) - Final
[2024-05-20 16:19] LABS: Glucose - Point of Care 178 mg/dl (70-99)
[2024-05-20] MEDS: LOVENOX 40 MG SC (18:06)
[2024-05-20] MEDS: NOVOLOG MIX 70/30 FLEXPEN 12 UNITS SC (18:14)
[2024-05-20 21:30] LABS: Glucose - Point of Care 238 mg/dl (70-99)
[2024-05-21] MEDS: ZOSYN 50 IV ×2 (02:09→08:59)
[2024-05-21 03:30] VITALS: BP 123/88
[2024-05-21 06:00] VITALS: BMI 26.5
[2024-05-21 07:24] VITALS: BP 122/79
[2024-05-21 07:33] LABS: Glucose - Point of Care 209 mg/dl (70-99)
--- NOTE | 2024-05-21 07:53 | PN.DE.MGMTRT ---
Insulin Management
- -
05/21/2024 Diabetes Management Consult Follow up
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 H diabetes for ~ 5 years per patient, taking no medication. On admission A1C 11.6%, cr .3, eGFR >60.
Patient is awake alert and oriented able to communicate in limited Slovak. He states he does not have insurance, or money. States he was taking metformin in the past but could not afford it. CM [facility] provided [facility] .
POD 3 s/p debridement of Fourniers gangrene.
Started metformin 1000 mg BID and glyburide 5 mg BID first dose of each with dinner 05/19. Glucose improved to 165 @ HS. Fasting glucose 05/20 174. Will continue corrective insulin as needed. 05/20 Pre lunch glucose 261, glyburide stopped, started
70/30 novolog 12 units BID first dose with dinner.
HS glucose 209, fasting 05/21 209. Will increase BID 70/30 to 15 units and continue metformin 1000 BID and corrective insulin.
05/[address] call to patients son and left a voice mail requesting he purchase home glucose monitor at [facility] and bring to hospital so patient can be instructed on steps for testing. (most cost effective for ongoing test strips) No response.
I called again 05/20.
I spoke to patients brother David and texted him the request for family to obtain a Reli-On glucose monitor from [facility]. David states he will take care of it. Provided and instructed patient on steps for preparing and injecting insulin pen.
Printed Instructions in Gambian with steps and pictures. Demonstrated for patient, fair return demonstration. Spoke with patients nurse and provided home pen needles so patient can self inject with nursing supervision.
Will follow.
Diabetes History
- -
Type of Diabetes: 2
Pre-Admission Diabetes Regimen
Lab Results
Hemoglobin A1c 11.6 % (4.0-5.6) H 05/19/24 04:35
Insulin Pump Settings
IP Diabetes Regimen
05/20/24 05/20/24 05/20/24
11:30 16:18 21:28
POC Glucose 261 H 178 H 238 H
05/21/24
07:32
POC Glucose 209 H
Meal type: Dinner
Meal type: Lunch
Meal type: Breakfast
Amount consumed: 100%
Amount consumed: 100%
Amount consumed: 100%
Patient Education
--- NOTE | 2024-05-21 08:45 | W.PN.HOSP.TC ---
Today's Communication/Plan
-
IV antibiotics. Increase insulin.
Assessment / Plan
Assessment / Plan
Physical exam:
General: Acutely ill but nontoxic
HEENT: Normocephalic, Atraumatic and Moist Mucous Membranes
Respiratory: Clear to Auscultation; Negative Wheezes, Rales or Rhonchi
Cardiac: Regular Rhythm and S1/S2
GI: Soft, Nontender and Nondistended
Musculoskeletal: No Clubbing, No Cyanosis and No Edema
Genito-urinary: Other (Scrotal postop findings)
Neuro: Awake, Alert and Oriented
Psych: Calm
A/P:
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
Sepsis secondary to the above
-Status post I&D in the OR by urology emergently.
- Patient with fever, tachycardia, leukocytosis and evidence of soft tissue infection on exam.
- CT imaging done in the ED shows gas in the soft tissues consistent with necrotizing soft tissue infection / Salima's gangrene.
- Urology evaluated the patient in the ED and he will be taken urgently to the OR for wide debridement.
- Admit to the ICU post-operatively mL back on the floor.
- IV abx, aggressive IVFs, supportive care, pain control, etc. off IV fluids.
- ID consult--> IV Unasyn per ID.
- N.p.o. on Saturday
DM-II with Hyperglycemia
- Glucose initially > 400 but improved significantly with aggressive IVFs support.
-Start insulin 70/30 increased to 15 units twice a day and continue metformin.
- Update A1C--> 11.6
- Follow glucose and cover with SSI as needed.
Pseudohyponatremia / Mild Hyponatremia
- Sodium improved to normal
DVT Prophylaxis: Lovenox
Code Status: Full
Anticipated Discharge: 24 - 48 hours
Subjective/Interval History
-
Date of Service: May 21, 2024
Discomfort in scrotal area. Afebrile
Objective Data
-
Vital Signs:
Vital Signs
Temp Pulse Resp BP Pulse Ox
98.2 F 70 17 122/79 97
05/21/24 07:24 05/21/24 07:24 05/21/24 07:24 05/21/24 07:24 05/21/24 07:24
I&O
05/20/24 05/21/24 05/22/24
06:59 06:59 06:59
Intake Total 2910 / 2910 1190 / 1190
Output Total 5050 / 5050
Balance -2140 / -2140 1190 / 1190
[2024-05-21] MEDS: GLUCOPHAGE 1000 MG PO ×2 (08:59→17:24)
[2024-05-21] MEDS: SANTYL OINTMENT 1 APPLIC TOPICAL (08:59)
[2024-05-21] MEDS: NOVOLOG MIX 70/30 FLEXPEN 15 UNITS SC ×2 (09:00→17:24)
[2024-05-21] MEDS: DAKIN'S SOLUTION 0.125% 1/4 STRENGTH 25 ML TOPICAL (09:00)
[2024-05-21] MEDS: NOVOLOG FLEXPEN-MODERATE RESISTANCE 3 UNITS SC ×2 (09:01→13:35)
--- NOTE | 2024-05-21 10:55 | W.PN.ID1 ---
Addendum entered and electronically signed by Lashawn Deluna MD 05/21/24 13:44:
I saw and evaluated the patient. I reviewed the resident�s note and agree with findings and plan as documented in the resident�s note.
Salima gangrene
Sepsis secondary to above, resolved
Uncontrolled DM
- Status-post debridement on 05-19-24.
- Abscess culture with Streptococcus agalactiae, and gram stain noted many gram positive cocci and gram negative rods.
- Anaerobic abscess cultures pending.
- Blood cultures *2 with no growth so far.
- Narrow piperacillin-tazobactam to ampicillin-sulbactam.
- Second debridement scheduled for 05-22-24, per urology.
- Wound care and diabetes management following.
Conditions known prior to admission
Type II diabetes mellitus, not on any treatment
Financial insecurity
Original Note:
Date of Service
Date of Service: May 21, 2024
Today's Communication
Switch to ampicillin-sulbactam.
Assessment / Plan
Salima gangrene
Sepsis secondary to above, resolved
- Likely a consequence of untreated diabetes and secondary to intentional trauma.
- Status-post debridement on 05-19-24.
- Leukocytosis now resolved, now afebrile with vitals within normal limits.
- Abscess culture with Streptococcus agalactiae, and gram stain noted many gram positive cocci and gram negative rods.
- Anaerobic abscess cultures pending.
- Negative for CT/GC.
- Blood cultures *2 with no growth so far.
- MRSA screen negative; discontinue vancomycin.
- Switch piperacillin-tazobactam to ampicillin-sulbactam.
- Second debridement scheduled for 05-22-24, per urology.
- Wound care and diabetes management following.
Conditions known prior to admission
Type II diabetes mellitus, not on any treatment
Financial insecurity
Chief Complaint
-: Other (scrotal swelling)
Subjective / Review of Systems
Review of Systems: No Fever, No Chills, No Headache and Other (scrotal swelling, erythema and wound)
Vital Signs / Physical Exam
Vital Signs
Vital Signs
Temp Pulse Resp BP Pulse Ox
98.2 F 70 17 122/79 97
05/21/24 07:24 05/21/24 07:24 05/21/24 07:24 05/21/24 07:24 05/21/24 07:24
Physical Exam
Constitutional: No Acute Distress and Comfortable
Head: Normocephalic
Eyes: Pupils Equal and Sclera Anicteric
Oropharyngeal: Benign
Cardiovascular: Regular Rate and S1/S2
Pulmonary: Clear and Non Labored
Gastrointestinal: Soft, Non Tender and Non Distended
Genito-Urinary: Other (bilateral scrotal swelling, erythema and tenderness with wound as described below)
Extremities: Negative Edema, Clubbing or Cyanosis
Wound: Other (full thickness scrotal wound with black necrotic tissue; positive tunneling; drain present)
Neurological: Awake, Alert and Oriented
Psychological: Calm
Objective Data
Lab Data
Lab Results
05/20/24 05:45
05/20/24 05:45
Estimated Creat Clear 124 ml/min 05/20/24 05:45
Lactic Acid Cancelled 05/19/24 06:05
Total Bilirubin 1.3 mg/dl (0.2-1.3) 05/19/24 04:35
AST 81 U/L (17-59) H 05/19/24 04:35
ALT 21 U/L (0-50) 05/19/24 04:35
Alkaline Phosphatase 81 U/L (38-126) 05/19/24 04:35
Most recent labs reviewed.
Micro Results:
05/19/24 00:55 Anaerobic Culture - Preliminary
Scrotum Culture pending. Anaerobic cultures are examined after 3
days incubation. Additional information to follow.
05/19/24 00:55 Wound Culture - Preliminary
Scrotum Streptococcus agalactiae
Gram Stain - Preliminary
05/18/24 20:13 Blood Culture - Preliminary
Blood/Venous No Growth in 48 hours- Final report to follow
05/18/24 20:13 Blood Culture - Preliminary
Blood/Venous No Growth in 48 hours- Final report to follow
05/19/24 04:35 MRSA Screen - Final
Nose No Methicillin Resistant Staphylococcus aureus isolated.
05/18/24 22:56 Chlamydia trachomatis (PCR) - Final
Urine Neisseria gonorrhoeae (PCR) - Final
[2024-05-21 11:03] VITALS: BP 124/74
--- NOTE | 2024-05-21 11:18 | CM ---
CM following re: discharge planning.
Reviewed pt's chart, met with pt.
Pt is Status-post debridement on 05-19-24.ID, Urology, neighborhood conservation officer and Diabetes management following. pt will need wound care supplies and wound care at discharge.
Pt is undocumented immigrant from [facility], has been living in the [facility] for the past 24 years, primary language Yakut and pt has basic understanding of Belizean. Pt lives with spouse and 2 children in a 2SH, 1 step to enter, has 3 supportive
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
An application to apply for [facility] services provided to pt and his son on Saturday.
D/C plan: home with follow up at [facility] and family support.
CM will follow with discharge plan updates as hospitalization progresses
[2024-05-21 11:46] LABS: Glucose - Point of Care 217 mg/dl (70-99)
--- NOTE | 2024-05-21 13:26 | PN.CDI ---
CDI
- -
CDI:
Physician Documentation Request
Admit Date: 05/18/24 22:46
Dear Doctor La,
Patient admitted for Salima's gangrene with septicemia.
05/19 Operative Note: 'Wide excision of Salima's gangrene with eschar and debridement of devitalized defunctionalized scrotal tissue...will start with a debridement and drainage of this infected tissue...debride the necrotic devitalized tissue
that was just under the skin and made up the subcutaneous tissue...safely debrided and cut out of the body, leaving a 5 x 5 cm swatch of subcutaneous tissue exposed to the air...iodoform gauze utilizing the entire bottle going up into the areas that
were under the skin that were left remaining from the wide debridement and down to the perineum.'
Could you provide, in the progress notes further clarification regarding the debridement.
Please specify the type of debridement performed:
1. Excisional Debridement - defined as removal by excision of devitalized tissue, necrosis or slough
2. Non-excisional debridement - defined as removal of devitalized tissue, necrosis or slough by such methods as irrigation, brushing, scrubbing or washing.
If the debridement was excisional, please also include:
1. Type of instrument used (#11 blade, #15 blade etc.)
2. What was excised (necrotic tissue, gangrenous tissue, slough etc.)
For excisional or non-excisional, please also include:
1. Depth of debridement (skin, subcutaneous tissue, fascia, muscle, bone etc)
2. Size and appearance of the wound (L, W, D, color of wound, drainage)
Use of terms such as suspected, likely, concern for, or probable (associated with a specific diagnosis that is being evaluated, monitored, or treated as if it exists) are acceptable and can be coded in the inpatient setting, when documented at the
time of discharge.
Thank you,
Anabella Pollock RN, BSN
CDI Specialist
Available via [place] text
Please use your independent medical judgment in providing your response.
--- NOTE | 2024-05-21 14:04 | W.PN.URO.CBU ---
Today's Communication / Plan
-
debridement in am in op room teach pt wound care and call case managemnt
Assessment / Plan
-
diabetic s/p debridemtn of fourniers gangrene sig improved did dressing change and taled with family schedule debridement on saturday for some remainng devitaized tissue will remove
Diagnosis
-
Date of Service: May 21, 2024
-
Patient Diagnosis:
Post Op Day:
Patient Diagnosis:
Post Op Day:
Patient Diagnosis:
Post Op Day:
Patient Diagnosis:diabetic with rt hemiscrotal fourniers gangrene
Post Op Day:
Subjective
-
feeing better
Objective
-
Vital Signs
Temp Pulse Resp BP Pulse Ox
98.4 F 70 18 124/74 98
05/21/24 11:03 05/21/24 11:03 05/21/24 11:03 05/21/24 11:03 05/21/24 11:03
Intake and Output
05/20/24 05/21/24 05/22/24
06:59 06:59 06:59
Intake Total 2910 / 2910 1190 / 1190
Output Total 5050 / 5050
Balance -2140 / -2140 1190 / 1190
Intake:
Oral fluids 1410 / 1410 1140 / 1140
IV fluids (Total) 800 / 800 50 / 50
Lr 1,000 ml @ 200 mls/hr IV . 800 / 800
Q5H [facility] Rx#:[id number]
Normosol 0 / 0
IV piggybacks 700 / 700
Output:
Urine, [place] 5050 / 5050
Other:
Number of approximated MODERATE 2
amounts of urine
Laboratory Results
05/20/24 05:45
05/20/24 05:45
Review of Systems
-
: No Symptoms
Physical Exam
-
General - well developed, well nourished, no acute distress
Chest - clear bilaterally
Abdomen - soft, non-tender, positive bowel sounds, no CVAT, no incisional pain or distention
Genitalia - normal
Rectal - normal
Skin - warm & dry with no rash
Neuro - AOx3, no motor deficits
Extremities - no clubbing, no cyanosis, no edema
Incision - clean, dry
Dressing - clean, dry, intact
Care Review
Data Reviewed
Discussed with: Nursing and Family (brother who apeaks honduran)
[2024-05-21] MEDS: UNASYN IV ×2 (14:35→20:20)
[2024-05-21 15:28] VITALS: BP 119/77
[2024-05-21 16:24] LABS: Glucose - Point of Care 189 mg/dl (70-99)
[2024-05-21] MEDS: NOVOLOG FLEXPEN-MODERATE RESISTANCE 1 UNITS SC (17:23)
[2024-05-21] MEDS: LOVENOX 40 MG SC (17:24)
[2024-05-21 19:45] VITALS: BP 126/88
[2024-05-21 21:53] LABS: Glucose - Point of Care 101 mg/dl (70-99)
[2024-05-21 23:32] VITALS: BP 110/69
[2024-05-22] VITALS (12 sets, daily range): BP systolic 92–131; BP diastolic 63–86; BMI 25.1
[2024-05-22] MEDS: UNASYN IV ×4 (02:54→20:20)
[2024-05-22 05:46] LABS: Glucose - Point of Care 191 mg/dl (70-99)
[2024-05-22 06:24] LABS: Hematocrit 38.9 % (39.0-52.0); Hemoglobin 13.7 g/dL (13.0-18.0); Mean Corp Hgb Conc. 35.2 g/dL (33.0-37.0); Mean Corpuscular Hgb 31.1 pg (27.0-31.0); Mean Corpuscular Volume 88.2 fL (80.0-94.0); Mean Platelet Volume 9.6 fL (7.4-10.4); Platelet Count 283 10^3/uL (130-400); Red Blood Cell Count 4.41 10^6/uL (4.70-6.10); Red Cell Dist. Width 11.9 % (11.5-14.5); White Blood Cell Count 5.5 10^3/uL (4.8-10.8)
[2024-05-22 06:39] LABS: Blood Urea Nitrogen 14 mg/dl (9-20); Calcium 9.6 mg/dl (8.4-10.2); Carbon Dioxide 25 mmol/L (22-30); Chloride 102 mmol/L (98-107); Estimated Creatinine Clearance 124 ml/min; Glucose 204 mg/dl (70-99); Potassium 4.3 mmol/L (3.5-5.1); Sodium 141 mmol/L (135-145); eGFR > 60.00
[2024-05-22 07:16] LABS: % Basophils 0.7 % (0-2); % Eosinophils 1.8 % (0-6); % Immature Granulocytes 0.4 % (0-0.5); % Lymphocytes 36.8 % (20.5-51.1); % Monocytes 11.4 % (1.7-9.3); % Neutrophils 48.9 % (42.2-75.2); Absolute Eosinophils 0.1 10^3/uL (0-0.7); Absolute Monocytes 0.6 10^3/uL (0.1-0.6); Absolute Neutrophils 2.7 10^3/uL (1.4-6.5); Nucleated Red Blood Cells % 0 % (-)
--- NOTE | 2024-05-22 07:25 | PN.DE.MGMTRT ---
Insulin Management
- -
05/22/2024 Diabetes Management F/U:
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 PMH diabetes for ~ 5 years per patient, taking no medication. On admission A1C 11.6%, cr .3, eGFR >60. Pt is Ugandan speaking but able to communicate in
limited Cymro. He states he does not have insurance, or money. States he was taking metformin in the past but could not afford it. CM has provided information for [facility] .
Patient is awake alert and oriented, offers no complaints. POD #4 s/p wide excision of fourniers scrotal gangrene.
05/19 was started metformin 1000 mg BID and glyburide 5 mg BID
05/20 Pre lunch glucose 261, glyburide stopped, started 70/30 NovoLog 12 units BID.
05/21 premeal glucose 189 to 217, HS glucose 101, fasting 204 this AM.
Will cont metformin 1000 BID and increase BID 70/30 to 17 units, continue corrective insulin.
05/[address] call to patients son and left a voice mail requesting he purchase home glucose monitor at [facility] and bring to hospital so patient can be instructed on steps for testing. (most cost effective for ongoing test strips) No response.
I called again 05/20.
I spoke to patients brother David and texted him the request for family to obtain a Reli-On glucose monitor from [facility]. David states he will take care of it. Provided and instructed patient on steps for preparing and injecting insulin pen.
Printed Instructions in Ugandan with steps and pictures. Demonstrated for patient, fair return demonstration. Spoke with patients nurse and provided home pen needles so patient can self inject with nursing supervision.
Will follow.
Diabetes History
- -
Type of Diabetes: 2
Pre-Admission Diabetes Regimen
05/22/24
05:41
Creatinine 0.4 L
Lab Results
Hemoglobin A1c 11.6 % (4.0-5.6) H 05/19/24 04:35
Insulin Pump Settings
IP Diabetes Regimen
05/21/24 05/21/24 05/21/24
07:32 11:44 16:23
Glucose
POC Glucose 209 H 217 H 189 H
05/21/24 05/22/24 05/22/24
21:52 05:41 05:44
Glucose 204 H
POC Glucose 101 H 191 H
Meal type: Lunch
Meal type: Breakfast
Amount consumed: 100%
Amount consumed: 100%
Patient Education
[2024-05-22 07:37] LABS: Glucose - Point of Care 181 mg/dl (70-99)
--- NOTE | 2024-05-22 08:09 | W.SUR.POST ---
Surgical Immediate Post Op
Note
Pre Op Diagnosis:
s/p wide excisionof fourniers scrotal gangene
Post Op Diagnosis: same
Procedure Performed: debridement of devitalized tissue
Primary Surgeon: josé manuel
Secondary Surgeons:
Anesthesia: DR LOPEZ LMA
Estimated Blood Loss: 2
Fluids: NSS
Drains/Shunts: 0
Specimens/Cultures: DEVITALIZED NECROTIC TISSUE
Doppler/Duplex/Angio (Y/N):
Complications: 0
Operative Findings: SEVERAL ARESA OF DEVITAIZED YTISSUE WITH SINGLE AREA OF 3C PS POINTING TOWARD PERINEUM
[2024-05-22] MEDS: NOVOLOG FLEXPEN-MODERATE RESISTANCE SC (08:19)
[2024-05-22] MEDS: SANTYL OINTMENT TOPICAL (08:20)
[2024-05-22] MEDS: DAKIN'S SOLUTION 0.125% 1/4 STRENGTH TOPICAL (08:20)
[2024-05-22] MEDS: NOVOLOG MIX 70/30 FLEXPEN 17 UNITS SC ×2 (09:29→18:05)
[2024-05-22] MEDS: GLUCOPHAGE 1000 MG PO ×2 (09:29→18:06)
[2024-05-22] MEDS: NOVOLOG FLEXPEN-MODERATE RESISTANCE 3 UNITS SC (09:30)
[2024-05-22 09:32] LABS: Glucose - Point of Care 211 mg/dl (70-99)
[2024-05-22] MEDS: NOVOLOG MIX 70/30 FLEXPEN SC (09:33)
--- NOTE | 2024-05-22 09:39 | W.PN.HOSP.TC ---
Today's Communication/Plan
-
IV antibiotics. Urology repeating debridement.
Assessment / Plan
Assessment / Plan
Physical exam:
General: Acutely ill but nontoxic
HEENT: Normocephalic, Atraumatic and Moist Mucous Membranes
Respiratory: Clear to Auscultation; Negative Wheezes, Rales or Rhonchi
Cardiac: Regular Rhythm and S1/S2
GI: Soft, Nontender and Nondistended
Musculoskeletal: No Clubbing, No Cyanosis and No Edema
Genito-urinary: Other (Scrotal postop findings)
Neuro: Awake, Alert and Oriented
Psych: Calm
A/P:
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
Sepsis secondary to the above--> improving.
-Status post I&D in the OR by urology emergently on 05/19 and repeated again today on 05/22.
- Patient upon admission with fever, tachycardia, leukocytosis and evidence of soft tissue infection on exam.
- CT imaging done in the ED shows gas in the soft tissues consistent with necrotizing soft tissue infection / Salima's gangrene.
- ID consult--> IV Unasyn per ID.
- Resume diet today
-Blood cultures no growth. MRSA screen negative. Chlamydia and Neisseria negative.
-Abscess culture with Streptococcus agalactiae and few coagulase-negative staph and Gram stain with gram-positive cocci and gram-negative rods.
-Discharge planning when cleared by urology and ID.
DM-II with Hyperglycemia
- Glucose initially > 400 but improved significantly with aggressive IVFs and insulin.
-Cont insulin 70/30 17 units twice a day and continue metformin.
- Update A1C--> 11.6
- cover with SSI as needed.
Pseudohyponatremia / Mild Hyponatremia
- Sodium improved to normal
DVT Prophylaxis: Lovenox
Code Status: Full
Anticipated Discharge: 24 - 48 hours
Subjective/Interval History
-
Date of Service: May 22, 2024
Patient had second scrotum debridement today. Discomfort in the scrotal area. Afebrile
Objective Data
-
Labs:
Laboratory Results
05/22/24
05:41
WBC 5.5
Hgb 13.7
Hct 38.9 L
Plt Count 283 D
Sodium 141
Potassium 4.3
Chloride 102
Carbon Dioxide 25
BUN 14
Creatinine 0.4 L
Glucose 204 H
Calcium 9.6
Vital Signs:
Vital Signs
Temp Pulse Resp BP Pulse Ox
98 F 76 18 131/85 95
05/22/24 09:07 05/22/24 09:07 05/22/24 09:07 05/22/24 09:07 05/22/24 09:07
I&O
05/21/24 05/22/24 05/23/24
06:59 06:59 06:59
Intake Total 1190 / 1190 1030 / 1030 100 / 100
Balance 1190 / 1190 1030 / 1030 100 / 100
[2024-05-22] MEDS: TYLENOL 650 MG PO ×2 (09:41→18:21)
--- NOTE | 2024-05-22 09:45 | PTCARENOTE ---
Pt returned back from PACU in bed. Scrotal dressing examined, mesh panties holding gauze and ABD in place. Pt states 2/10 burning pain, 650mg Tylenol given. Language line used to communicate, POC, questions asked. VSS. Will contine to monitor.
[2024-05-22 11:32] LABS: Glucose - Point of Care 359 mg/dl (70-99)
--- NOTE | 2024-05-22 12:44 | W.PN.ID1 ---
Addendum entered and electronically signed by Lashawn Deluna MD 05/22/24 15:01:
I saw and evaluated the patient. I reviewed the resident�s note and agree with findings and plan as documented in the resident�s note.
#Salima gangrene
#s/p Sepsis
#Uncontrolled DM
- Status-post debridement on 05-19-24 and 05/22/24.
- Abscess culture with Streptococcus agalactiae, and gram stain noted many gram positive cocci and gram negative rods.
- Anaerobic abscess cultures pending.
- Blood cultures *2 with no growth so far.
- Continue ampicillin-sulbactam.
- When close to discharge,will transition to amox-clav 875mg po bid x 2 weeks from 05/22/24.
- Wound care and diabetes management following.
Conditions known prior to admission
Type II diabetes mellitus, not on any treatment
Financial insecurity
Original Note:
Date of Service
Date of Service: May 22, 2024
Today's Communication
* Continue ampicillin-sulbactam and wound care.
Assessment / Plan
Salima gangrene
Sepsis secondary to above, resolved
- Likely a consequence of untreated diabetes and secondary to intentional trauma.
- Status-post debridement on 05-19-24 and 05-22-24.
- Leukocytosis now resolved, now afebrile with vitals within normal limits.
- Abscess culture with Streptococcus agalactiae, and gram stain noted many gram positive cocci and gram negative rods.
- Anaerobic abscess cultures pending.
- Negative for CT/GC.
- Blood cultures *2 with no growth so far.
- MRSA screen negative; discontinue vancomycin.
- Continue ampicillin-sulbactam (day 5 of antibiotics).
- Wound care, urology and diabetes management following.
Conditions known prior to admission
Type II diabetes mellitus, not on any treatment
Financial insecurity
Chief Complaint
-: Other (scrotal swelling)
Subjective / Review of Systems
Review of Systems: No Fever, No Chills, No Headache and Other (scrotal swelling, erythema and wound)
Vital Signs / Physical Exam
Vital Signs
Vital Signs
Temp Pulse Resp BP Pulse Ox
98.4 F 77 18 128/84 97
05/22/24 10:55 05/22/24 10:55 05/22/24 10:55 05/22/24 10:55 05/22/24 10:00
Physical Exam
Constitutional: No Acute Distress and Comfortable
Head: Normocephalic
Eyes: Pupils Equal and Sclera Anicteric
Oropharyngeal: Benign
Cardiovascular: Regular Rate and S1/S2
Pulmonary: Clear and Non Labored
Gastrointestinal: Soft, Non Tender and Non Distended
Genito-Urinary: Other (bilateral scrotal swelling, erythema and tenderness with wound as described below)
Extremities: Negative Edema, Clubbing or Cyanosis
Wound: Other (full thickness scrotal wound status-post debridement; positive tunneling)
Neurological: Awake, Alert and Oriented
Psychological: Calm
Objective Data
Lab Data
Lab Results
05/22/24 05:41
05/22/24 05:41
Estimated Creat Clear 124 ml/min 05/22/24 05:41
Lactic Acid Cancelled 05/19/24 06:05
Total Bilirubin 1.3 mg/dl (0.2-1.3) 05/19/24 04:35
AST 81 U/L (17-59) H 05/19/24 04:35
ALT 21 U/L (0-50) 05/19/24 04:35
Alkaline Phosphatase 81 U/L (38-126) 05/19/24 04:35
Most recent labs reviewed.
Micro Results:
05/19/24 00:55 Anaerobic Culture - Preliminary
Scrotum Culture pending. Anaerobic cultures are examined after 3
days incubation. Additional information to follow.
05/18/24 20:13 Blood Culture - Preliminary
Blood/Venous No Growth in 72 hours- Final report to follow
05/18/24 20:13 Blood Culture - Preliminary
Blood/Venous No Growth in 72 hours- Final report to follow
05/19/24 00:55 Wound Culture - Preliminary
Scrotum Streptococcus agalactiae
Gram Stain - Preliminary
05/19/24 04:35 MRSA Screen - Final
Nose No Methicillin Resistant Staphylococcus aureus isolated.
05/18/24 22:56 Chlamydia trachomatis (PCR) - Final
Urine Neisseria gonorrhoeae (PCR) - Final
[2024-05-22] MEDS: NOVOLOG FLEXPEN-MODERATE RESISTANCE 9 UNITS SC (13:30)
[2024-05-22 16:33] LABS: Glucose - Point of Care 266 mg/dl (70-99)
[2024-05-22] MEDS: NOVOLOG FLEXPEN-MODERATE RESISTANCE 5 UNITS SC (18:04)
[2024-05-22] MEDS: LOVENOX 40 MG SC (18:05)
[2024-05-22 21:08] LABS: Glucose - Point of Care 137 mg/dl (70-99)
[2024-05-23] MEDS: UNASYN IV ×4 (02:48→20:24)
[2024-05-23 03:21] VITALS: BP 128/79
[2024-05-23 06:00] VITALS: BMI 25.0
[2024-05-23 07:55] VITALS: BP 118/81
[2024-05-23 08:20] LABS: Glucose - Point of Care 105 mg/dl (70-99)
[2024-05-23] MEDS: NOVOLOG FLEXPEN-MODERATE RESISTANCE SC (08:42)
[2024-05-23] MEDS: NOVOLOG MIX 70/30 FLEXPEN 17 UNITS SC ×2 (09:03→18:24)
[2024-05-23] MEDS: GLUCOPHAGE 1000 MG PO ×2 (09:06→18:08)
[2024-05-23] MEDS: TYLENOL 650 MG PO ×2 (09:21→18:08)
[2024-05-23] MEDS: FLUSH (NSS) 2 FLUSH IV ×2 (09:24→15:57)
--- NOTE | 2024-05-23 09:33 | W.PN.HOSP.TC ---
Today's Communication/Plan
-
IV antibiotics.
Assessment / Plan
Assessment / Plan
Physical exam:
General: Acutely ill but nontoxic
HEENT: Normocephalic, Atraumatic and Moist Mucous Membranes
Respiratory: Clear to Auscultation; Negative Wheezes, Rales or Rhonchi
Cardiac: Regular Rhythm and S1/S2
GI: Soft, Nontender and Nondistended
Musculoskeletal: No Clubbing, No Cyanosis and No Edema
Genito-urinary: Other (Scrotal postop findings with packed wound)
Neuro: Awake, Alert and Oriented
Psych: Calm
A/P:
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
Sepsis secondary to the above--> improving.
-Status post I&D in the OR by urology emergently on 05/19 and repeated again on 05/22.
- Patient upon admission with fever, tachycardia, leukocytosis and evidence of soft tissue infection on exam.
- CT imaging done in the ED shows gas in the soft tissues consistent with necrotizing soft tissue infection / Salima's gangrene.
- ID consult--> IV Unasyn per ID. When ready for discharge will transition to oral Augmentin for 2 weeks.
-Blood cultures no growth. MRSA screen negative. Chlamydia and Neisseria negative.
-Abscess culture with Streptococcus agalactiae and few coagulase-negative staph and Gram stain with gram-positive cocci and gram-negative rods.
-Discharge planning when cleared by urology and ID.
DM-II with Hyperglycemia
-Blood sugars 105 this morning
- Glucose initially > 400 but improved significantly with aggressive IVFs and insulin.
-Cont insulin 70/30 17 units twice a day and continue metformin.
- Update A1C--> 11.6
- cover with SSI as needed.
Pseudohyponatremia / Mild Hyponatremia
- Sodium improved to normal
DVT Prophylaxis: Lovenox
Code Status: Full
Anticipated Discharge: Within 24 hours
Subjective/Interval History
-
Date of Service: May 23, 2024
Patient with some scrotal discomfort but no nausea vomiting or abdominal pain. Afebrile. No chest pain or shortness of breath
Objective Data
-
Vital Signs:
Vital Signs
Temp Pulse Resp BP Pulse Ox
98 F 71 21 118/81 96
05/23/24 07:55 05/23/24 07:55 05/23/24 07:55 05/23/24 07:55 05/23/24 07:55
I&O
05/22/24 05/23/24 05/24/24
06:59 06:59 06:59
Intake Total 1030 / 1030 1630 / 1630
Balance 1030 / 1030 1630 / 1630
--- NOTE | 2024-05-23 11:37 | W.PN.URO.CBU ---
Today's Communication / Plan
-
home am sun ifm discharge plannig in place i called left mesage for soc [facility]
Assessment / Plan
-
diabetic s/p debridemtn of fourniers gangrene sig improved did dressing change and taled with family schedule debridement on saturday for some remainng devitaized tissue will remove
Diagnosis
-
Date of Service: May 23, 2024
-
Patient Diagnosis:
Post Op Day:
Patient Diagnosis:
Post Op Day:
Patient Diagnosis:
Post Op Day:
Patient Diagnosis:
Post Op Day:
Patient Diagnosis:diabetic with rt hemiscrotal fourniers gangrene
Post Op Day:
Subjective
-
improving
Objective
-
Vital Signs
Temp Pulse Resp BP Pulse Ox
98 F 71 21 118/81 96
05/23/24 07:55 05/23/24 07:55 05/23/24 07:55 05/23/24 07:55 05/23/24 07:55
Intake and Output
05/22/24 05/23/24 05/24/24
06:59 06:59 06:59
Intake Total 1030 / 1030 1630 / 1630
Balance 1030 / 1030 1630 / 1630
Intake:
Oral fluids 1030 / 1030 1170 / 1170
IV fluids (Total) 0 / 0 100 / 100
Normosol 100 / 100
IV piggybacks 0 / 0 360 / 360
Other:
Number of approximated MODERATE 2 3
amounts of urine
Laboratory Results
05/22/24 05:41
05/22/24 05:41
Review of Systems
-
: No Symptoms
Physical Exam
-
General - well developed, well nourished, no acute distress
Chest - clear bilaterally
Abdomen - soft, non-tender, positive bowel sounds, no CVAT, no incisional pain or distention
Genitalia - normal
Rectal - normal
Skin - warm & dry with no rash
Neuro - AOx3, no motor deficits
Extremities - no clubbing, no cyanosis, no edema
Incision - clean, dry
Dressing - clean, dry, intact
Care Review
Data Reviewed
Discussed with: Nursing, Family and Other (case managnnt)
[2024-05-23 11:57] VITALS: BP 117/75
[2024-05-23 13:01] LABS: Glucose - Point of Care 171 mg/dl (70-99)
[2024-05-23] MEDS: NOVOLOG FLEXPEN-MODERATE RESISTANCE 1 UNITS SC ×2 (13:41→18:23)
[2024-05-23 15:13] VITALS: BP 113/69
[2024-05-23] MEDS: DAKIN'S SOLUTION 0.125% 1/4 STRENGTH 50 ML TOPICAL (17:48)
[2024-05-23] MEDS: SANTYL OINTMENT 1 APPLIC TOPICAL (17:49)
[2024-05-23 17:52] LABS: Glucose - Point of Care 163 mg/dl (70-99)
[2024-05-23] MEDS: LOVENOX 40 MG SC (18:05)
[2024-05-23 21:12] LABS: Glucose - Point of Care 133 mg/dl (70-99)
[2024-05-23 23:29] VITALS: BP 129/84
[2024-05-24] MEDS: UNASYN IV ×4 (02:31→19:38)
[2024-05-24] MEDS: TYLENOL 650 MG PO ×2 (05:44→23:35)
[2024-05-24 06:00] VITALS: BMI 24.6
[2024-05-24 07:56] VITALS: BP 101/68
[2024-05-24] MEDS: GLUCOPHAGE 1000 MG PO ×2 (08:17→17:32)
[2024-05-24 08:35] LABS: Glucose - Point of Care 128 mg/dl (70-99)
[2024-05-24] MEDS: NOVOLOG FLEXPEN-MODERATE RESISTANCE SC ×2 (08:35→17:31)
--- NOTE | 2024-05-24 09:01 | W.PN.HOSP.TC ---
Today's Communication/Plan
-
IV antibiotics. Discharge planning in progress.
Assessment / Plan
Assessment / Plan
Physical exam:
General: Acutely ill but nontoxic
HEENT: Normocephalic, Atraumatic and Moist Mucous Membranes
Respiratory: Clear to Auscultation; Negative Wheezes, Rales or Rhonchi
Cardiac: Regular Rhythm and S1/S2
GI: Soft, Nontender and Nondistended
Musculoskeletal: No Clubbing, No Cyanosis and No Edema
Genito-urinary: Other (Scrotal postop findings in place with packed wound)
Neuro: Awake, Alert and Oriented
Psych: Calm
A/P:
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
On IV Unasyn per ID and will switch to oral antibiotics upon discharge-->When ready for discharge will transition to oral Augmentin for 2 weeks.
Status post I&D by urology on admission and subsequent debridement done during this hospital stay.
WBC 11-->5.5
Blood cultures no growth. MRSA screen negative. Chlamydia and Neisseria negative.
Abscess culture with Streptococcus agalactiae and few coagulase-negative staph and Gram stain with gram-positive cocci and gram-negative rods.
Discharge planning when cleared by urology and ID and case management arrangements are set up.
Discussed with supervisor case loading today and working on discharge arrangements.
Discussed with attending RN.
Updated family at bedside today.
DM-II with Hyperglycemia:
Improving
Blood sugars 128 this morning
Cont insulin 70/30 17 units twice a day and continue metformin 1,000 mg twice a day.
Update A1C--> 11.6
Continue cover with SSI as needed.
Pseudohyponatremia / Mild Hyponatremia
Sodium improved back to normal
DVT Prophylaxis: Lovenox
Code Status: Full
Anticipated Discharge: 24 - 48 hours
Subjective/Interval History
-
Date of Service: May 24, 2024
Patient feels well overall today. Some discomfort in the scrotal area. Afebrile.
Objective Data
-
Vital Signs:
Vital Signs
Temp Pulse Resp BP Pulse Ox
98.1 F 68 20 101/68 97
05/24/24 07:56 05/24/24 07:56 05/24/24 07:56 05/24/24 07:56 05/24/24 07:56
I&O
05/23/24 05/24/24 05/25/24
06:59 06:59 06:59
Intake Total 1630 / 1630 1350 / 1350
Balance 1630 / 1630 1350 / 1350
[2024-05-24] MEDS: NOVOLOG MIX 70/30 FLEXPEN 17 UNITS SC ×2 (10:07→19:14)
--- NOTE | 2024-05-24 11:55 | W.PN.URO.CBU ---
Today's Communication / Plan
-
AWAIT [facility] PLEASE TACH FAMILY DRSSING CARE
Assessment / Plan
-
diabetic s/p debridemtn of fourniers gangrene sig improved did dressing change PT AWAITING RXS AND GLUCOMTER BEFORE DISCHARG
Diagnosis
-
Date of Service: May 24, 2024
-
Patient Diagnosis:
Post Op Day:
Patient Diagnosis:
Post Op Day:
Patient Diagnosis:
Post Op Day:
Patient Diagnosis:
Post Op Day:
Patient Diagnosis:
Post Op Day:
Patient Diagnosis:diabetic with rt hemiscrotal fourniers gangrene
Post Op Day:
Subjective
-
BETTER
Objective
-
Vital Signs
Temp Pulse Resp BP Pulse Ox
98.1 F 68 20 101/68 97
05/24/24 07:56 05/24/24 07:56 05/24/24 07:56 05/24/24 07:56 05/24/24 07:56
Intake and Output
05/23/24 05/24/24 05/25/24
06:59 06:59 06:59
Intake Total 1630 / 1630 1350 / 1350
Balance 1630 / 1630 1350 / 1350
Intake:
Oral fluids 1170 / 1170 1080 / 1080
IV fluids (Total) 100 / 100 50 / 50
Normosol 100 / 100
IV piggybacks 360 / 360 220 / 220
Other:
Number of approximated MODERATE 3 2
amounts of urine
Laboratory Results
05/22/24 05:41
05/22/24 05:41
Review of Systems
-
: No Symptoms
Physical Exam
-
General - well developed, well nourished, no acute distress
Chest - clear bilaterally
Abdomen - soft, non-tender, positive bowel sounds, no CVAT, no incisional pain or distention
Genitalia - normal
Rectal - normal
Skin - warm & dry with no rash
Neuro - AOx3, no motor deficits
Extremities - no clubbing, no cyanosis, no edema
Incision - clean, dry
Dressing - clean, dry, intact
Care Review
Data Reviewed
Discussed with: Hospitalist, Nursing and Family
[2024-05-24 13:23] LABS: Glucose - Point of Care 166 mg/dl (70-99)
[2024-05-24] MEDS: NOVOLOG FLEXPEN-MODERATE RESISTANCE 1 UNITS SC (14:13)
--- NOTE | 2024-05-24 14:42 | CM ---
Reviewed chart, patient is going to need assistance with wound care and diabetic supplies. MA pending. He will need diabetic and wound care supplies at d/c.
Plan: Case management will continue to follow and assist with discharge planning. Patient will need assistance obtaining medical supplies prior to d/c.
[2024-05-24 15:55] VITALS: BP 129/79
[2024-05-24] MEDS: SANTYL OINTMENT TOPICAL ×2 (16:53→18:05)
[2024-05-24] MEDS: DAKIN'S SOLUTION 0.125% 1/4 STRENGTH 473 ML TOPICAL (16:53)
[2024-05-24] MEDS: LOVENOX 40 MG SC (17:01)
[2024-05-24 17:25] LABS: Glucose - Point of Care 142 mg/dl (70-99)
[2024-05-24 21:45] LABS: Glucose - Point of Care 149 mg/dl (70-99)
[2024-05-24 23:00] VITALS: BP 113/73
[2024-05-25] MEDS: UNASYN IV ×3 (02:39→14:26)
[2024-05-25 06:00] VITALS: BMI 24.5
[2024-05-25 07:00] VITALS: BP 108/72
[2024-05-25 07:47] LABS: Glucose - Point of Care 135 mg/dl (70-99)
[2024-05-25] MEDS: NOVOLOG FLEXPEN-MODERATE RESISTANCE SC (07:48)
[2024-05-25] MEDS: GLUCOPHAGE 1000 MG PO ×2 (07:48→17:29)
[2024-05-25] MEDS: SANTYL OINTMENT TOPICAL (07:48)
--- NOTE | 2024-05-25 08:02 | PN.DE.MGMTRT ---
Insulin Management
- -
05/25/2024 Diabetes Management F/U:
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 H diabetes for ~ 5 years per patient, taking no medication. On admission A1C 11.6%, cr .3, eGFR >60. Pt is Marshallese speaking but able to communicate in
limited Liberian. He states he does not have insurance, or money. States he was taking metformin in the past but could not afford it. CM has provided information for [facility] .
Patient is awake alert and oriented, offers no complaints, sitting up in bed, able to minimally discuss diabetes plan of care.
States family was able to obtain a Reli-On glucose monitor from [employer]. instructed pt to have family obtain 70/30 insulin from [employer] as well.
POD # 7 s/p wide excision of fourniers scrotal gangrene.
05/19 was started metformin 1000 mg BID and glyburide 5 mg BID. 05/20 Pre lunch glucose 261, glyburide stopped, started 70/30 NovoLog 12 units BID.
Glucose stable and in range, premeal 128 to 166, FBG 135 this AM.
Will make no changes to current regimen: Metformin 1000 BID and 70/30 17 units BID with corrective insulin.
Pt was provided instructions and steps for preparing and injecting insulin pen and has printed Instructions in Marshallese with steps and pictures.
Provided more home pen needles so patient can self inject with nursing supervision.
Will follow.
Diabetes History
- -
Type of Diabetes: 2 requiring insulin
Pre-Admission Diabetes Regimen
Lab Results
Hemoglobin A1c 11.6 % (4.0-5.6) H 05/19/24 04:35
Insulin Pump Settings
IP Diabetes Regimen
05/24/24 05/24/24 05/24/24
08:33 13:22 17:23
POC Glucose 128 H 166 H 142 H
05/24/24 05/25/24
21:44 07:46
POC Glucose 149 H 135 H
Patient Education
[2024-05-25 08:31] LABS: Hematocrit 39.8 % (39.0-52.0); Mean Corp Hgb Conc. 35.2 g/dL (33.0-37.0); Mean Corpuscular Hgb 31.7 pg (27.0-31.0); Mean Platelet Volume 9.1 fL (7.4-10.4); Platelet Count 382 10^3/uL (130-400); Red Blood Cell Count 4.42 10^6/uL (4.70-6.10); Red Cell Dist. Width 12.2 % (11.5-14.5); White Blood Cell Count 3.9 10^3/uL (4.8-10.8)
[2024-05-25] MEDS: NOVOLOG MIX 70/30 FLEXPEN 17 UNITS SC ×2 (08:59→17:58)
--- NOTE | 2024-05-25 09:23 | W.PN.URO.CBU ---
Today's Communication / Plan
-
home whwn social svcs fished
Assessment / Plan
-
diabetic s/p debridemtn of fourniers gangrene sig improved did dressing change PT AWAITING RXS AND GLUCOMTER BEFORE DISCHARG
Diagnosis
-
Date of Service: May 25, 2024
-
Patient Diagnosis:
Post Op Day:
Patient Diagnosis:
Post Op Day:
Patient Diagnosis:
Post Op Day:
Patient Diagnosis:
Post Op Day:
Patient Diagnosis:
Post Op Day:
Patient Diagnosis:
Post Op Day:
Patient Diagnosis:diabetic with rt hemiscrotal fourniers gangrene
Post Op Day:
Subjective
-
better every day
Objective
-
Vital Signs
Temp Pulse Resp BP Pulse Ox
98.4 F 70 18 108/72 97
05/25/24 07:00 05/25/24 07:00 05/25/24 07:00 05/25/24 07:00 05/25/24 07:00
Intake and Output
05/24/24 05/25/24 05/26/24
06:59 06:59 06:59
Intake Total 1350 / 1350 1020 / 1020
Balance 1350 / 1350 1020 / 1020
Intake:
Oral fluids 1080 / 1080 1020 / 1020
IV fluids (Total) 50 / 50
IV piggybacks 220 / 220
Other:
Number of approximated MODERATE 2 2
amounts of urine
Laboratory Results
05/25/24 08:08
Review of Systems
-
: No Symptoms
Physical Exam
-
General - well developed, well nourished, no acute distress
Chest - clear bilaterally
Abdomen - soft, non-tender, positive bowel sounds, no CVAT, no incisional pain or distention
Genitalia granulating well
Rectal - normal
Skin - warm & dry with no rash
Neuro - AOx3, no motor deficits
Extremities - no clubbing, no cyanosis, no edema
Incision - clean, dry
Dressing - clean, dry, intact
Care Review
Data Reviewed
Discussed with: Nursing
[2024-05-25 10:01] LABS: Blood Urea Nitrogen 16 mg/dl (9-20); Calcium 9.5 mg/dl (8.4-10.2); Carbon Dioxide 27 mmol/L (22-30); Chloride 103 mmol/L (98-107); Estimated Creatinine Clearance 124 ml/min; Glucose 136 mg/dl (70-99); Potassium 4.6 mmol/L (3.5-5.1); Sodium 140 mmol/L (135-145); eGFR > 60.00
[2024-05-25] MEDS: DAKIN'S SOLUTION 0.125% 1/4 STRENGTH 473 ML TOPICAL (10:08)
[2024-05-25 12:07] LABS: Glucose - Point of Care 150 mg/dl (70-99)
--- NOTE | 2024-05-25 12:21 | CM ---
Addendum entered by Ros Rick 05/25/24 15:34:
[facility] does not have application. CM called and left VM for son requesting call back to review process.
Original Note:
Patient seen at bedside. Patient stated he had completed application for [facility] and family had taken it to the clinic. CM left message for the clinic and await response. CM will continue to follow for discharge planning needs.
Plan: home with follow up at [facility]
--- NOTE | 2024-05-25 12:36 | W.PN.ID1 ---
Addendum entered and electronically signed by Lashawn Deluna MD 05/25/24 13:13:
I saw and evaluated the patient. I reviewed the resident�s note and agree with findings and plan as documented in the resident�s note.
Exam: right scrotum wound with granulating tissue
#Salima gangrene
#s/p Sepsis
#Uncontrolled DM
- Status-post debridement on 05-19-24 and 05/22/24.
- Abscess culture with Streptococcus agalactiae
- Anaerobic abscess cultures mixed barbie
- Blood cultures *2 with no growth so far.
- Transition Unasyn to amox-clav 875mg po bid through 06/05/24.
- Wound care and diabetes management following.
Conditions known prior to admission
Type II diabetes mellitus, not on any treatment
Financial insecurity
Original Note:
Date of Service
Date of Service: May 25, 2024
Today's Communication
* Continue ampicillin-sulbactam and wound care.
Assessment / Plan
Salima gangrene
Sepsis secondary to above, resolved
- Likely a consequence of untreated diabetes and secondary to intentional trauma.
- Status-post debridement on 05-19-24 and 05-22-24.
- Leukocytosis now resolved, now afebrile with vitals within normal limits.
- Abscess culture with Streptococcus agalactiae, and gram stain noted many gram positive cocci and gram negative rods.
- Anaerobic abscess cultures pending.
- Negative for CT/GC.
- Blood cultures *2 with no growth so far.
- MRSA screen negative; discontinue vancomycin.
- Continue ampicillin-sulbactam; will need antibiotics through 06-05-24; can transition amoxicillin-clavulanate on discharge.
- Wound care, urology and diabetes management following.
Conditions known prior to admission
Type II diabetes mellitus, not on any treatment
Financial insecurity
Chief Complaint
-: Other (scrotal swelling)
Subjective / Review of Systems
Review of Systems: No Fever, No Chills, No Headache and Other (scrotal swelling, erythema and wound)
Vital Signs / Physical Exam
Vital Signs
Vital Signs
Temp Pulse Resp BP Pulse Ox
98.4 F 70 18 108/72 97
05/25/24 07:00 05/25/24 07:00 05/25/24 07:00 05/25/24 07:00 05/25/24 07:00
Physical Exam
Constitutional: No Acute Distress and Comfortable
Head: Normocephalic
Eyes: Pupils Equal and Sclera Anicteric
Oropharyngeal: Benign
Cardiovascular: Regular Rate and S1/S2
Pulmonary: Clear and Non Labored
Gastrointestinal: Soft, Non Tender and Non Distended
Genito-Urinary: Other (bilateral scrotal swelling, erythema and tenderness with wound as described below)
Extremities: Negative Edema, Clubbing or Cyanosis
Wound: Other (full thickness scrotal wound status-post debridement; positive tunneling)
Neurological: Awake, Alert and Oriented
Psychological: Calm
Objective Data
Lab Data
Lab Results
05/25/24 08:08
05/25/24 08:08
Estimated Creat Clear 124 ml/min 05/25/24 08:08
Lactic Acid Cancelled 05/19/24 06:05
Total Bilirubin 1.3 mg/dl (0.2-1.3) 05/19/24 04:35
AST 81 U/L (17-59) H 05/19/24 04:35
ALT 21 U/L (0-50) 05/19/24 04:35
Alkaline Phosphatase 81 U/L (38-126) 05/19/24 04:35
Most recent labs reviewed.
Micro Results:
05/19/24 00:55 Anaerobic Culture - Final
Scrotum
05/18/24 20:13 Blood Culture - Final
Blood/Venous No Growth - Final Report
05/18/24 20:13 Blood Culture - Final
Blood/Venous No Growth - Final Report
05/19/24 00:55 Wound Culture - Preliminary
Scrotum Streptococcus agalactiae
Gram Stain - Preliminary
05/19/24 04:35 MRSA Screen - Final
Nose No Methicillin Resistant Staphylococcus aureus isolated.
05/18/24 22:56 Chlamydia trachomatis (PCR) - Final
Urine Neisseria gonorrhoeae (PCR) - Final
[2024-05-25] MEDS: NOVOLOG FLEXPEN-MODERATE RESISTANCE 1 UNITS SC ×2 (13:17→17:57)
--- NOTE | 2024-05-25 14:27 | W.PN.HOSP.TC ---
Today's Communication/Plan
-
discharge planning
Assessment / Plan
Assessment / Plan
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
Status post I&D by urology on admission and subsequent debridement done during this hospital stay
Blood cultures no growth. MRSA screen negative. Chlamydia and Neisseria negative.
Abscess culture with Streptococcus agalactiae and few coagulase-negative staph and Gram stain with gram-positive cocci and gram-negative rods.
On IV Unasyn per ID and will switch to oral antibiotics upon discharge-->When ready for discharge will transition to oral Augmentin for 2 weeks.
Discharge planning underway, case management discussing with [facility] if patient will be able to be followed up in office
DM-II with Hyperglycemia:
Improving
Cont insulin 70/30 17 units twice a day and continue metformin 1,000 mg twice a day.
Update A1C--> 11.6
Continue cover with SSI as needed.
Pseudohyponatremia / Mild Hyponatremia
Sodium improved back to normal
DVT Prophylaxis: Lovenox
Code Status: Full
Anticipated Discharge: Within 24 hours
Subjective/Interval History
-
Date of Service: May 25, 2024
no issues overnight
resting comfortably in bed
Objective Data
-
Labs:
Laboratory Results
05/25/24
08:08
WBC 3.9 L
Hgb 14.0
Hct 39.8
Plt Count 382 D
Sodium 140
Potassium 4.6
Chloride 103
Carbon Dioxide 27
BUN 16
Creatinine 0.5 L
Glucose 136 H
Calcium 9.5
Vital Signs:
Vital Signs
Temp Pulse Resp BP Pulse Ox
98.4 F 70 18 108/72 97
05/25/24 07:00 05/25/24 07:00 05/25/24 07:00 05/25/24 07:00 05/25/24 07:00
I&O
05/24/24 05/25/24 05/26/24
06:59 06:59 06:59
Intake Total 1350 / 1350 1020 / 1020
Balance 1350 / 1350 1020 / 1020
Review of Systems
-
Respiratory: Reports No Symptoms
Cardiac: Reports No Symptoms
Abdomen/GI: Reports No Symptoms
Physical Exam
-
General: Negative Respiratory Distress
HEENT: Negative Oxygen
Genito-urinary: Other (Right scrotal dressing in place)
Neuro: Awake, Alert and Oriented
[2024-05-25 15:00] VITALS: BP 115/74
[2024-05-25 16:30] LABS: Glucose - Point of Care 170 mg/dl (70-99)
[2024-05-25 17:26] LABS: Glucose - Point of Care 176 mg/dl (70-99)
[2024-05-25] MEDS: LOVENOX 40 MG SC (17:29)
[2024-05-25] MEDS: AUGMENTIN 875 MG/125 MG 1 TABLET PO (19:57)
[2024-05-25] MEDS: TYLENOL 650 MG PO (20:13)
[2024-05-25 21:40] LABS: Glucose - Point of Care 96 mg/dl (70-99)
[2024-05-25 23:58] VITALS: BP 118/76
[2024-05-26 06:00] VITALS: BMI 24.5
[2024-05-26 07:30] VITALS: BP 117/73
[2024-05-26 07:53] LABS: Glucose - Point of Care 146 mg/dl (70-99)
[2024-05-26] MEDS: NOVOLOG FLEXPEN-MODERATE RESISTANCE SC ×3 (08:14→16:08)
--- NOTE | 2024-05-26 08:14 | PN.DE.MGMTRT ---
Insulin Management
- -
05/26/2024 Diabetes Management Follow up:
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 H diabetes for ~ 5 years per patient, taking no medication. On admission A1C 11.6%, cr .3, eGFR >60. Pt is Syrian speaking but able to communicate in
limited Upper Sorbian. He states he does not have insurance, or money. States he was taking metformin in the past but could not afford it. CM has provided information for [facility] .
Patient is awake alert and oriented, offers no complaints, sitting up in bed, Tyrone RN, who is fluent in Syrian at bedside to translate regarding diabetes plan of care.
States family was able to obtain a Contour glucose monitor which is at bedside. Explained to patient the ReliOn meter strips are less expensive. He states he has a friend who uses the same meter so he will give him test strips and lancets to test
his blood sugar.
POD # 8 s/p wide excision of fourniers scrotal gangrene.
05/19 was started metformin 1000 mg BID and glyburide 5 mg BID. 05/20 Pre lunch glucose 261, glyburide stopped, started 70/30 NovoLog 12 units BID.
05/26 Glucose stable and in range, premeal 96 to 176, FBG 146 this AM. Required 1 unit of corrective insulin pre lunch and pre dinner.
Will make no changes to current regimen: Metformin 1000 BID and 70/30 17 units BID with corrective insulin.
Pt was provided instructions and steps for preparing and injecting insulin pen and has printed Instructions in Syrian with steps and pictures, patient states he thinks his son took that home, requesting an additional copy.
Provided more home pen needles so patient can self inject with nursing supervision. Patient reports he has not self inject insulin. Discussed with nurse Castaneda requesting patient take all insulin himself with nursing supervision.
Will follow.
Diabetes History
- -
Type of Diabetes: 2 requiring insulin
Pre-Admission Diabetes Regimen
05/25/24
08:08
Creatinine 0.5 L
Lab Results
Hemoglobin A1c 11.6 % (4.0-5.6) H 05/19/24 04:35
Insulin Pump Settings
IP Diabetes Regimen
05/25/24 05/25/24 05/25/24
08:08 12:06 16:29
Glucose 136 H
POC Glucose 150 H 170 H
05/25/24 05/25/24 05/26/24
17:25 21:39 07:51
Glucose
POC Glucose 176 H 96 146 H
Meal type: Lunch
Meal type: Breakfast
Amount consumed: 100%
Amount consumed: 100%
Patient Education
[2024-05-26] MEDS: DAKIN'S SOLUTION 0.125% 1/4 STRENGTH TOPICAL (08:15)
[2024-05-26] MEDS: SANTYL OINTMENT TOPICAL (08:15)
[2024-05-26] MEDS: AUGMENTIN 875 MG/125 MG 1 TABLET PO (08:16)
[2024-05-26] MEDS: GLUCOPHAGE 1000 MG PO ×2 (08:16→16:41)
[2024-05-26] MEDS: NOVOLOG MIX 70/30 FLEXPEN 17 UNITS SC ×2 (08:16→16:41)
[2024-05-26] MEDS: DAKIN'S SOLUTION 0.125% 1/4 STRENGTH 75 ML TOPICAL (10:13)
[2024-05-26 12:15] LABS: Glucose - Point of Care 102 mg/dl (70-99)
--- NOTE | 2024-05-26 12:32 | W.PN.ID1 ---
Date of Service
Date of Service: May 26, 2024
Today's Communication
Continue amox-clav 875mg po bid through 06/05/24.
ID will sign off.
Assessment / Plan
#Salima gangrene
#s/p Sepsis
#Uncontrolled DM
- Status-post debridement on 05-19-24 and 05/22/24.
- Abscess culture with Streptococcus agalactiae
- Anaerobic abscess cultures mixed barbie
- Blood cultures *2 with no growth so far.
- s/p course of amp-sulbactam IV.
- Continue amox-clav 875mg po bid through 06/05/24.
ID will sign off.
Chief Complaint
-: Other (scrotal swelling)
Subjective / Review of Systems
No complaints. Feels well.
Vital Signs / Physical Exam
Vital Signs
Vital Signs
Temp Pulse Resp BP Pulse Ox
98.1 F 68 16 117/73 97
05/26/24 07:30 05/26/24 07:30 05/26/24 07:30 05/26/24 07:30 05/26/24 07:30
Physical Exam
Gastrointestinal: Soft, Non Tender and Non Distended
Objective Data
Lab Data
Lab Results
05/25/24 08:08
05/25/24 08:08
Estimated Creat Clear 124 ml/min 05/25/24 08:08
Lactic Acid Cancelled 05/19/24 06:05
Total Bilirubin 1.3 mg/dl (0.2-1.3) 05/19/24 04:35
AST 81 U/L (17-59) H 05/19/24 04:35
ALT 21 U/L (0-50) 05/19/24 04:35
Alkaline Phosphatase 81 U/L (38-126) 05/19/24 04:35
Most recent labs reviewed.
Micro Results:
05/19/24 00:55 Anaerobic Culture - Final
Scrotum
05/18/24 20:13 Blood Culture - Final
Blood/Venous No Growth - Final Report
05/18/24 20:13 Blood Culture - Final
Blood/Venous No Growth - Final Report
05/19/24 00:55 Wound Culture - Preliminary
Scrotum Streptococcus agalactiae
Gram Stain - Preliminary
05/19/24 04:35 MRSA Screen - Final
Nose No Methicillin Resistant Staphylococcus aureus isolated.
05/18/24 22:56 Chlamydia trachomatis (PCR) - Final
Urine Neisseria gonorrhoeae (PCR) - Final
[2024-05-26 13:03] VITALS: BP 134/79
--- NOTE | 2024-05-26 13:06 | W.PN.HOSP.TC ---
Today's Communication/Plan
-
d/c home
Assessment / Plan
Assessment / Plan
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
Status post I&D by urology on admission and subsequent debridement done during this hospital stay
Blood cultures no growth. MRSA screen negative. Chlamydia and Neisseria negative.
Abscess culture with Streptococcus agalactiae and few coagulase-negative staph and Gram stain with gram-positive cocci and gram-negative rods.
On IV Unasyn per ID and will switch to oral antibiotics upon discharge-->When ready for discharge will transition to oral Augmentin for 2 weeks.
DM-II with Hyperglycemia:
Improving
Cont insulin 70/30 17 units twice a day and continue metformin 1,000 mg twice a day.
Update A1C--> 11.6
Continue cover with SSI as needed.
Pseudohyponatremia / Mild Hyponatremia
Sodium improved back to normal
DVT Prophylaxis: Lovenox
Code Status: Full
More than 30 minutes spent in discharge including
Final examination of the patient
Summarizing hospital stay
Instructions for continuing care to all relevant caregivers
Preparation of discharge records, prescriptions, and referral forms
Total time spent (in minutes): 38 mins
Anticipated Discharge: Today
Subjective/Interval History
-
Date of Service: May 26, 2024
no issues overnight
afebrile
Objective Data
-
Vital Signs:
Vital Signs
Temp Pulse Resp BP Pulse Ox
98.0 F 73 16 134/79 98
05/26/24 13:03 05/26/24 13:03 05/26/24 13:03 05/26/24 13:03 05/26/24 13:03
I&O
05/25/24 05/26/24 05/27/24
06:59 06:59 06:59
Intake Total 1020 / 1020 1200 / 1200 600 / 600
Balance 1020 / 1020 1200 / 1200 600 / 600
Review of Systems
-
Unable to obtain full review of systems at this time due to: Language Barrier
Physical Exam
-
General: Negative Respiratory Distress
HEENT: Negative Oxygen
Genito-urinary: Other (Right scrotal dressing in place)
Neuro: Awake, Alert and Oriented
--- NOTE | 2024-05-26 14:14 | CM ---
Patient seen at bedside, patient stated the lady from the [facility] took all paperwork, CM spoke with Liaison and she indicated that she did not get paperwork for clinic. CM spoke with Clinic and they provided copy of the application in Khmer and it
was provided to patient and CM discussed with patient the documentation needed to complete application. CM also spoke with patient brother and provided information for phone number of the clinic. Patient stated he would have his son pick him up at
5pm and would go directly to the clinic as they are open until 6:30pm. Per patient brother patient can afford the first prescription for insulin meds and per nursing some supplies provided to patient. Patient for discharge home today. CM will
continue to follow for discharge planning needs.
[facility]
--- NOTE | 2024-05-26 14:36 | PTCARENOTE ---
Margaret Pt navigator at bedside facilitating going over dc instructions who is fluent in Russian from the [facility]. Dulce Rn facilitating dc instructions along with Tyrone Rn who is fluent in Russian as well. JAIME Prabhjot at bedside multiple
time and has been on the phone with pts brother as well. per JAIME pts brother coming to pick pt up at 1700.
[2024-05-26 15:59] LABS: Glucose - Point of Care 87 mg/dl (70-99)
[2024-05-26 16:00] VITALS: BP 132/86
--- NOTE | 2024-05-27 18:29 | W.DCSUMMARY ---
Discharge Summary
Discharge Data
Date of Admission: 05/18/24
Date of Discharge: 05/26/24
-
Pending Results: No
Hospital Course
Discharging Physician : Dr Yanick Dumont
Disposition : To home
Primary care physician : None
Principal Discharge diagnosis :
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
Type 2 diabetes -new diagnosis
Pseudohyponatremia
Chronic Discharge diagnosis :
Hospital Course :
Patient is a 54-year-old male with no mentioned past medical history came to ER with new onset of scrotal pain and swelling. Patient noticed a small pimple on the scrotum which patient tried to drain with pin. Patient noticed new onset of swelling
and tenderness which slowly started extending to base of scrotum and penile shaft. Patient also started to having new onset of fever and chills. CT scan done in ER showing soft tissue necrotizing infection in right scrotum. Urology was consulted
and patient was taken to the OR immediately where patient required wide excision/debridement for Salima's gangrene. Postoperatively patient was transferred to ICU for further monitoring. Blood cultures were collected and patient was maintained
on broad-spectrum antibiotics. ID was involved in care as well. Patient was found to be new diabetic with hemoglobin A1c of 11.6, diabetic nurse practitioner was involved for further help with insulin management. Patient require a follow-up
repeat debridement of devitalized tissue in the area. Abscess culture was growing Streptococcus agalactia. After clinical improvement at discharge patient was instructed to be maintained on oral Augmentin therapy for another 10 days.
Patient is uninsured and an [facility] clinic was contacted for post discharge care follow-up. Patient was provided prescription of insulin/metformin.
Important imaging findings :
None
Procedure findings :
None
Discharge Plan
-
Patient Disposition: Home (Routine Discharge)
Discharge Diagnosis/Procedures: Right Salima gangrene, Type II diabetes
Condition: Fair
Diet: Diabetic, Carb Controlled
Activity: As tolerated
Driving Restrictions: As prior to admission
Bathing Restrictions: OK to Shower
Activity Restrictions/Additional Instructions:
Wound Care Instructions
Scrotal wound as per surgeon's instructions.
Pressure redistributing chair cushion (i.e. Air chair cushion).
Follow up at [facility] free clinic at or at wound care center call for an appointment.
Referrals:
Kunal Tovar MD [Active] - (CALL DR TOVAR [phone] TO SCHEDULE APPT FOR EVALUATION OF WOUND BUT ALSO MUST SEE [facility] FOR WOUND CARE AND DIABETES CARE)
NONE,* [Family Provider] -
Prescriptions:
New
metformin 1,000 mg Tablet
1,000 mg PO BID@0800,1700 Qty: 60 0RF
amoxicillin-pot clavulanate 875-125 mg Tablet
1 tab PO Q12 Qty: 20 0RF
insulin asp prt-insulin aspart 100 unit/mL (70-30) Insulin Pen
17 unit SC BID@0800,1700 Qty: 15 0RF
(DME) pen needle, diabetic [BD Ultra-Fine Monae Pen Needle] 32 gauge x 5/32' Needle
Qty: 100 0RF
Rx Instructions:
Use twice daily
Discharge Orders:
Discharge Patient (As Directed); Ordered 05/26/24
Ordered By: Yanick Dumont
Discharge Date and Time
Discharge Date/Time: 05/26/24 17:15
Print Language: ETHIOPIAN
== END 2024-05-26 17:15 | disposition home or self-care (01) | DRG 853 ==
LOC: 3 WEST ACU 22:46
PROVIDERS: Hospitalist; Physician Assistant Medical; Student in an Organized Health Care Education/Training Program; ADMITTING PHYSICIAN Hospitalist; ATTENDING PHYSICIAN Hospitalist; CONSULT PHYSICIAN Internal Medicine Critical Care Medicine; CONSULT PHYSICIAN Specialist; EMERGENCY PHYSICIAN Emergency Medicine; OTHER PHYSICIAN Internal Medicine Infectious Disease
PROC: 0VB50ZZ Excision of Scrotum, Open Approach (ICD-10-PCS; 2024-05-19)
DX: A41.9 Sepsis, unspecified organism (principal); J18.9 Pneumonia, unspecified organism; L02.214 Cutaneous abscess of groin; E87.1 Hypo-osmolality and hyponatremia; E11.65 Type 2 diabetes mellitus with hyperglycemia; N49.3 Fournier gangrene; N49.2 Inflammatory disorders of scrotum; N43.3 Hydrocele, unspecified; T73.0XXA Starvation, initial encounter; Z59.7 Insufficient social insurance and welfare support
CPT/HCPCS: 88304; 71045; 74177; 76870; 80048; 80053; 80061; 81003; 82248; 82962; 83036; 83605; 83735; 84100; 85025; 85027; 87040; 87070; 87075; 87077; 87147; 87205; 87491; 87591; 93976; 96365; 96366; 96367; 96375; 97116; 97162; 97165; 99291; Q9967

== ENCOUNTER → 2024-07-23 06:36 | Outpatient (REF) | payer OTHER, SELFPAY ==
[2024-07-23 07:58] LABS: ALT (SGPT) 15 U/L (0-50); AST (SGOT) 26 U/L (17-59); Albumin 4.9 g/dl (3.5-5.0); Alkaline Phosphatase 51 U/L (38-126); Blood Urea Nitrogen 17 mg/dl (9-20); Calcium 9.8 mg/dl (8.4-10.2); Carbon Dioxide 25 mmol/L (22-30); Chloride 104 mmol/L (98-107); Glucose 102 mg/dl (70-99); Potassium 4.3 mmol/L (3.5-5.1); Sodium 144 mmol/L (135-145); Total Bilirubin 0.8 mg/dl (0.2-1.3); Total Protein 8.1 g/dl (6.3-8.2); eGFR > 60.00
[2024-07-23 09:09] LABS: Glycohemoglobin (HgbA1c) 6.1 % (4.0-5.6)
== END ==
LOC: CLINIC 06:36
PROVIDERS: ATTENDING PHYSICIAN Nurse Practitioner Adult Health
DX: E11.69 Type 2 diabetes mellitus with other specified complication (principal)
CPT/HCPCS: 36415; 80053; 83036

== ENCOUNTER → 2024-11-13 06:21 | Outpatient (REF) | payer OTHER, SELFPAY ==
[2024-11-13 07:55] LABS: ALT (SGPT) 18 U/L (0-50); AST (SGOT) 23 U/L (17-59); Albumin 4.2 g/dl (3.5-5.0); Alkaline Phosphatase 72 U/L (38-126); Blood Urea Nitrogen 13 mg/dl (9-20); Calcium 9.8 mg/dl (8.4-10.2); Carbon Dioxide 26 mmol/L (22-30); Chloride 105 mmol/L (98-107); Glucose 105 mg/dl (70-99); HDL Cholesterol 78 mg/dl; LDL Cholesterol, Calculated 97 mg/dl; Potassium 4.5 mmol/L (3.5-5.1); Sodium 138 mmol/L (135-145); Total Bilirubin 0.9 mg/dl (0.2-1.3); Total Cholesterol 185 mg/dl (50-199); Total Protein 7.3 g/dl (6.3-8.2); Triglyceride 51 mg/dl (10-149); Very Low Density Lipoprotein 10 mg/dl (0-30); eGFR > 60.00
[2024-11-13 08:55] LABS: Vitamin B12 975 pg/ml (239-931)
[2024-11-13 10:09] LABS: Glycohemoglobin (HgbA1c) 5.8 % (4.0-5.6)
== END ==
LOC: CLINIC 06:21
PROVIDERS: ATTENDING PHYSICIAN Nurse Practitioner Adult Health
DX: E11.69 Type 2 diabetes mellitus with other specified complication (principal); E11.42 Type 2 diabetes mellitus with diabetic polyneuropathy
CPT/HCPCS: 36415; 80053; 80061; 82607; 83036

== ENCOUNTER → 2025-02-20 07:02 | Outpatient (REF) | payer OTHER, SELFPAY ==
[2025-02-20 09:16] LABS: Blood Urea Nitrogen 15 mg/dl (9-20); Calcium 9.6 mg/dl (8.4-10.2); Carbon Dioxide 20 mmol/L (22-30); Chloride 111 mmol/L (98-107); Glucose 104 mg/dl (70-99); Sodium 141 mmol/L (135-145); eGFR > 60.00
[2025-02-20 10:52] LABS: Glycohemoglobin (HgbA1c) 6.1 % (4.0-5.6)
== END ==
LOC: CLINIC 07:02
PROVIDERS: ATTENDING PHYSICIAN Nurse Practitioner Adult Health
DX: E11.69 Type 2 diabetes mellitus with other specified complication (principal)
CPT/HCPCS: 36415; 80048; 83036

== ENCOUNTER → 2025-08-17 06:19 | Outpatient (REF) | payer OTHER, SELFPAY ==
[2025-08-17 07:56] LABS: ALT (SGPT) 17 U/L (0-50); AST (SGOT) 26 U/L (17-59); Albumin 4.5 g/dl (3.5-5.0); Alkaline Phosphatase 87 U/L (38-126); Blood Urea Nitrogen 14 mg/dl (9-20); Calcium 9.8 mg/dl (8.4-10.2); Carbon Dioxide 24 mmol/L (22-30); Chloride 107 mmol/L (98-107); Glucose 127 mg/dl (70-99); Potassium 4.1 mmol/L (3.5-5.1); Sodium 139 mmol/L (135-145); Total Protein 8.1 g/dl (6.3-8.2); eGFR > 60.00
[2025-08-17 10:54] LABS: Glycohemoglobin (HgbA1c) 7.9 % (4.0-5.9)
== END ==
LOC: CLINIC 06:19
PROVIDERS: ATTENDING PHYSICIAN Nurse Practitioner Adult Health
DX: E11.69 Type 2 diabetes mellitus with other specified complication (principal)
CPT/HCPCS: 36415; 80053; 83036